=== PATIENT | female | born 1970 | race African-American/Black ===

== ENCOUNTER 2016-03-30 20:14 | Emergency (ER) | payer OTHER ==
[~2016-03-30] VITALS: Ht 185.4 cm; Wt 113.6 kg
[~2016-03-30 20:14] MED LIST: ACET-703 PO; CIPR-9 PO; IBUP800T23 PO; PRED5TAB PO
[2016-03-30 20:16] VITALS: BP 137/80; PULSE 79; RESP 15; TEMP 98.8; O2SAT 96
[2016-03-31 01:11] LABS: BLOOD, URINE SMALL (NEG); GLUCOSE,URINE NEG (NEG); KETONE, URINE NEG (NEG); NITRITE,URINE NEG (NEG); PH, URINE 5.5 (5.0-8.5); RENAL EPITHELIAL CELLS <1 /hpf; SQUAMOUS EPITHELIAL CELL URINE 1 /hpf (0-5); URINE COLOR YELLOW (YELLW/STRAW)
[2016-03-31 01:12] LABS: COMMENT (UR) CULTURE INDICATED; CULTURE IF INDICATED CULTURE INDICATED
[2016-03-31 04:00] VITALS: BP 127/78; PULSE 74; RESP 18; O2SAT 99
[2016-03-31] MEDS ORDERED: ONDANSETRON ODT 4 MG TAB PO ONE (04:00)
[2016-03-31] MEDS ORDERED: NITROFURANTOIN MONOHYD MACROCR 100 MG CAP PO ONE (04:00)
[2016-03-31] MEDS ORDERED: MORPHINE SULFATE 8 MG/ML INJ IM ONE (04:00)
[2016-03-31] MEDS ORDERED: PYRI200T4 PO (04:08)
[2016-03-31] MEDS ORDERED: MACR100C2 PO (04:08)
--- NOTE | 2016-03-31 04:14 | PD ---
HPI Chief Complaint: Complaint Time Seen by Provider: 04:08 Travel History International Travel<30 days: No Contact w/Intl Traveler<30days: No Traveled to known affect area: No History of Present Illness HPI 46-year-old black female presents to emergency department accompanied by her mother for evaluation of increasing urinary frequency, dysuria and urgency. She states that she has had similar symptoms in the past with urinary tract infections. She states that she has a mobility issue and holds her urine. She states that she seen through the clinic. She denies any fever or chills. No nausea vomiting. No abdominal pain. She does have a colostomy and has been stooling normally. No back pain. PFSH Past Medical History Narrative Medical Arthritis, chronic pain, diverticulitis with peritonitis Anemia: Yes Arthritis: Yes Autoimmune Disease: No Blood Disorders: No Anxiety: No Depression: No Heart Rhythm Problems: No Cancer: No Cardiovascular Problems: No High Cholesterol: No Chemotherapy: No Chest Pain: No Congestive Heart Failure: No Diabetes: No Diminished Hearing: No Endocrine: No Glaucoma: No Genitourinary: No Hepatitis: No Hiatal Hernia: No Hypertension: No Immune Disorder: No Kidney Stones: No Musculoskeletal: Yes (RIGHT KNEE OSTEOARTHRITIS) Neurologic: No Psychiatric: No Reproductive: No Respiratory: No Myocardial Infarction: No Radiation Therapy: No Renal Failure: No Sickle Cell Disease: No Thyroid Disease: No Tetanus Vaccination: < 5 Years ?: Not Past Surgical History Narrative Surgical Partial colectomy with diverting colostomy, PEG tube Abdominal Surgery: Yes (colostomy) AICD: No Appendectomy: Yes Body Medical Devices: LEFT PE TUBE Cardiac Surgery: No Ear Surgery: Yes (LEFT EAR INSERTION OF PE TUBE X 2 ) Endocrine Surgery: No Eye Surgery: No Genitourinary Surgery: Yes (intrauterine fibroid removal) Gynecologic Surgery: No Hysterectomy: Yes Joint Replacement: No Oral Surgery: Yes (ADNOIDECTOMY ) Pacemaker: No Thoracic Surgery: No Other Surgery: Yes (APPENDECTOMY) Social History Alcohol Use: No Tobacco Use: No Substance Use: No Allergies-Medications (Allergen,Severity, Reaction): Uncoded Allergies: orange juice (Allergy, Intermediate, Nausea/Vomiting, 11/12/12) Reported Meds & Prescriptions Reported Meds & Active Scripts Active Prednisone 5 Mg Tab 5 Mg PO DAILY Cipro (Ciprofloxacin HCl) 500 Mg Tab 500 Mg PO BID Ibuprofen 800 Mg Tab 800 Mg PO Q8H PRN Reported Tylenol Extra Strength (Acetaminophen) 500 Mg Tab 3 Tab PO Q4-6H PRN Review of Systems Except as stated in HPI: all other systems reviewed are Neg Physical Exam Narrative GENERAL: This is a well-nourished, well-developed patient, in no apparent distress. SKIN: No rashes, ecchymoses or lesions. Warm and dry. HEAD: Atraumatic. Normocephalic. EYES: PERRL, EOMI, no discharge or injection. No scleral icterus. EARS: Clear NOSE: Nasal turbinates appear normal. THROAT: Mucosa pink and moist. Airway patent. NECK: Trachea midline. supple, moves head freely. LUNGS: Clear to auscultation. CV: Regular in rhythm. ABDOMEN: Soft nontender. Colostomy in the left lower abdomen. No CVA tenderness. EXT: No clubbing cyanosis. Chronic +1 Edema. Data Data Last Documented VS Vital Signs Date Time Temp Pulse Resp B/P Pulse Ox O2 Delivery O2 Flow Rate FiO2 03/30/16 20:16 98.8 79 15 137/80 96 Room Air Orders Urinalysis - C+S If Indicated (03/30/16 20:22) Urine Culture (03/31/16 00:36) Morphine Inj (Morphine Inj) (03/31/16 04:00) Ondansetron Odt (Zofran Odt) (03/31/16 04:00) Nitrofurantoin Monohyd Macrocr (Macrobid (03/31/16 04:00) Labs Laboratory Tests Test 03/31/16 00:36 Urine Color YELLOW Urine Turbidity HAZY Urine pH 5.5 Urine Specific [place] 1.032 Urine Protein 30 mg/dL Urine Glucose (UA) NEG mg/dL Urine Ketones NEG mg/dL Urine Occult Blood SMALL Urine Nitrite NEG Urine Bilirubin NEG Urine Urobilinogen LESS THAN 2.0 MG/DL Urine Leukocyte Esterase NEG Urine RBC 70 /hpf Urine WBC 9 /hpf Urine Squamous Epithelial 1 /hpf Cells Urine Renal Epithelial Cells <1 /hpf Urine Amorphous Sediment RARE Microscopic Urinalysis Comment CULTURE INDICATED MDM Medical Decision Making Medical Screen Exam Complete: Yes Emergency Medical Condition: Yes Medical Record Reviewed: Yes Interpretation(s) Laboratory Tests Test 03/31/16 00:36 Urine Color YELLOW Urine Turbidity HAZY Urine pH 5.5 Urine Specific [place] 1.032 Urine Protein 30 mg/dL Urine Glucose (UA) NEG mg/dL Urine Ketones NEG mg/dL Urine Occult Blood SMALL Urine Nitrite NEG Urine Bilirubin NEG Urine Urobilinogen LESS THAN 2.0 MG/DL Urine Leukocyte Esterase NEG Urine RBC 70 /hpf Urine WBC 9 /hpf Urine Squamous Epithelial 1 /hpf Cells Urine Renal Epithelial Cells <1 /hpf Urine Amorphous Sediment RARE Microscopic Urinalysis Comment CULTURE INDICATED Differential Diagnosis Differential diagnoses: Pyelonephritis, UTI, vaginitis, intra-abdominal infection Narrative Course Patient states that these are symptoms consistent with prior UTIs. Her urine shows a predominance of red blood cells with a few WBCs and no bacteria seen. With the patient's complaints she'll be treated for UTI. She does not appear to be septic. She is given Macrobid as well as morphine 8 mg IM for her pain. Patient has mobility issues. She is encouraged to force fluids. This is UTI, chronic pain Diagnosis Primary Impression: UTI (urinary tract infection) Qualified Code: N30.01 - Acute cystitis with hematuria Additional Impression: Chronic pain Qualified Code: G89.4 - Chronic pain syndrome Patient Instructions: General Instructions Additional Instructions: Rest. Increase fluids. Macrobid and Pyridium. Follow-up with a primary care doctor in one week. Return to the ER for any problems. Med/Other Pt SpecificInfo: Prescription(s) given Scripts Phenazopyridine (Pyridium)200 Mg Yer930 Mg PO Q8H PRN (DYSURIA) #9 TAB Prov:Kali Jolly MD 03/31/16 Nitrofurantoin Monohydrate Macrocrystals (Macrobid)100 Mg Gol001 Mg PO BID #20 CAP Prov:Kali Jolly MD 03/31/16 Disposition: 01 DISCHARGE HOME Condition: Stable Alberto Brown Mar 31, 2016 04:13
[2016-04-12] MEDS ORDERED: PRED5TAB PO (10:31)
== END 2016-03-31 04:51 | disposition home or self-care (01) ==
LOC: NEPB 20:14
DX: N39.0 Urinary tract infection, site not specified (principal); D64.9 Anemia, unspecified; M19.90 Unspecified osteoarthritis, unspecified site; G89.4 Chronic pain syndrome; Z93.3 Colostomy status
CPT/HCPCS: 81001; 87086; 96372; 99283; J2270

== ENCOUNTER 2016-08-10 09:27 | Inpatient (IN) | payer BC ==
[~2016-08-10] VITALS: Ht 185.4 cm; Wt 138.0 kg
[~2016-08-10 09:27] MED LIST changes: -ACET-703 PO; -CIPR-9 PO; -PRED5TAB PO
--- NOTE | 2016-08-21 08:15 | MH ---
cc: Gennaro RAE M.D. DATE OF ADMISSION: 09/04/2016 PREOPERATIVE DIAGNOSIS Osteoarthritic degeneration both left and right knees, now for bilateral total knee arthroplasties. ADMISSION HISTORY AND PHYSICAL This pleasant 46-year-old female is being admitted today for bilateral total knee arthroplasty due to severe painful osteoarthritic degeneration. PAST MEDICAL HISTORY Other past history: 1. The patient has a history of arthritis. 2. She has a history of having previous surgeries, appendectomy. 3. Hysterectomy. 4. Intestinal surgery. 5. Ear tubes. 6. She has a colostomy. CURRENT MEDICATIONS Include: 1. Ibuprofen. 2. Tylenol. 3. Prednisone. REVIEW OF SYSTEMS Noncontributory. FAMILY HISTORY Noncontributory. SOCIAL HISTORY She does not smoke or drink. ALLERGIES NO KNOWN ALLERGIES. PHYSICAL EXAMINATION GENERAL: We find a 46-year-old female well-developed, well-nourished, oriented x 3, complaining of pain in her knees. She is unable to ambulate without quite a bit of assistance. VITAL SIGNS: Blood pressure 138/80, pulse 88 and regular, respirations 18, temperature 98.1. Pulse oximetry 97% on room air. HEENT: Pupils equal, round, reactive to light and accommodation, extraocular movements intact. Ears, nose and throat clear. NECK: Supple. LUNGS: Clear. HEART: Regular rate. ABDOMEN: Soft. She has a colostomy. EXTREMITIES: Reveal severe arthritic degeneration of both knees with limited motion. She is neurovascularly intact to her toes. IMPRESSION Severe painful osteoarthritic degeneration both knees. PLAN Admission for bilateral total knee arthroplasty today. The patient understands the procedure well and understands to use Hibiclens scrub and Bactroban ointment and plans on going to [facility] after surgery. MD ANDREA Smith/PATEL /6:04 PM /8:16 AM
[2016-09-01] MEDS ORDERED: NORC5TAB PO (10:39)
[2016-09-01] MEDS ORDERED: NON-500T10 PO (10:40)
[2016-09-04] MEDS ORDERED: SODIUM CHLORID 0.9% 500 ML IV PRN (06:45)
[2016-09-04] MEDS ORDERED: LACTATED RINGER'S 1000 ML IV PRN (06:45)
[2016-09-04] MEDS ORDERED: POVIDONE IODINE 5% (ANTISEPSIS KIT) 4 APPLICATIONS EACH NARE PRN (06:45)
[2016-09-04] MEDS ORDERED: INSULIN HUMAN REGULAR 1,000 UNITS/10 ML VIAL SQ PRN (06:45)
[2016-09-04] MEDS ORDERED: METOPROLOL TARTRATE 25 MG TAB PO PRN (06:45)
[2016-09-04] MEDS ORDERED: CHLORHEXIDINE GLUCONATE 2 % 1 PACK (2 CLOTHS) TOPICAL PRN (06:45)
[2016-09-04 07:00] VITALS: BP 161/100; PULSE 84; RESP 18; TEMP 98.6; O2SAT 98
[2016-09-04] MEDS ORDERED: ceFAZolin 2 GM PREMIX 50 ML IV SCH (07:00)
[2016-09-04] MEDS ORDERED: VANCOMYCIN 1000 MG/NS 250 ML (for <70 kg) IV SCH ×2 (07:00)
[2016-09-04] MEDS ORDERED: TRANEXAMIC ACID INJ 1,360 MG in SODIUM CHLORIDE 0.9% INJ 100 ML IV SCH ×2 (09:00→12:00)
[2016-09-04] MEDS ORDERED: BUPIVACAINE LIPOSO PF 1.3% INJ 20 ML in SODIUM CHLORIDE 0.9% INJ 100 ML P-ARTICULR SCH (09:00)
[2016-09-04] MEDS ORDERED: TRANEXAMIC ACID INJ 0 MG in SODIUM CHLORIDE 0.9% INJ 100 ML IV SCH (10:30)
[2016-09-04] MEDS ORDERED: Post-op Orders (for Pharmacy) MISC XX ONE (10:30)
[2016-09-04] MEDS ORDERED: ONDANSETRON HCL 4 MG/2 ML VIAL IVP PRN (10:30)
[2016-09-04] MEDS ORDERED: ACETAMINOPHEN 325 MG TAB PO PRN (10:30)
[2016-09-04] MEDS ORDERED: SODIUM CHLORIDE 0.9% FLUSH 5 ML FLUSH IVF PRN (10:30)
[2016-09-04] MEDS ORDERED: ACETAMINOPHEN/HYDROcodone 325 MG/10 MG TAB PO PRN ×2 (10:30)
[2016-09-04] MEDS ORDERED: diphenhydrAMINE HCL 50 MG/ML VIAL IV PRN (10:30)
[2016-09-04] MEDS ORDERED: NALOXONE HCL 0.4 MG/ML AMP IV PRN (10:30)
[2016-09-04] MEDS ORDERED: ceFAZolin INJ 1,000 MG VIAL TOPICAL ONE (11:03)
[2016-09-04] MEDS ORDERED: NEOSTIGMINE 3 MG/3 ML SYR IV ONE (14:22)
[2016-09-04] MEDS ORDERED: PROPOFOL 200 MG/20 ML AMP IV ONE (14:22)
[2016-09-04] MEDS ORDERED: LACTATED RINGER'S 1000 ML INJ 2,000 ML IV ONE (14:23)
[2016-09-04] MEDS ORDERED: ONDANSETRON HCL 4 MG/2 ML VIAL IV PUSH ONE (14:23)
[2016-09-04] MEDS ORDERED: MIDAZOLAM HCL 2 MG/2 ML VIAL ONE (15:17)
[2016-09-04] MEDS ORDERED: MORPHINE SULFATE 4 MG/ML INJ ONE (15:17)
[2016-09-04] MEDS ORDERED: fentaNYL CITRATE 250 MCG/5 ML AMP ONE (15:17)
--- NOTE | 2016-09-04 15:39 | HHI.PR ---
Immediate Post Op Note Procedure Date: Sep 04, 2016 Pre Op Diagnosis: (1) Osteoarthritis (2) Osteoarthritis of both knees Post Op Diagnosis: (1) Osteoarthritis of both knees Surgeon: Dr. Gennaro Byrd Manager Pediatric(s): Lacy MCCANN Procedure: Bilateral Total Knees Arthroplasty Complications: none Specimen(s) removed: none Estimated blood loss: 300cc Anesthesia: General Drains: None IVF (3600cc) Tourniquet time (min at mmHg) Left Knee 66 mins/300mmHg Right Knee 66 mins/300mmHg Patient to: PACU Patient Condition: Good Implant/Devices: SEE IMPLANT LOG (if applicable) Date/Time of Procedure: SEE SURGICAL CARE RECORD Lacy Yu Sep 04, 2016 15:39
[2016-09-04] MEDS: LACTATED RINGER'S 1000 ML INJ 1,000 ML IV SCH ×2 (16:00→23:59)
[2016-09-04] MEDS: MORPHINE SULFATE 30 MG/30 ML PCA IV SCH (16:05)
--- NOTE | 2016-09-04 16:41 | RADRPT ---
EXAM DATE/TIME: 09/04/2016 15:21 [facility] COMPARISON: KNEE LEFT LTD (1 OR 2VWS), November 22, 2015, 17:57. INDICATIONS : Post op left knee arthroplasty. MEDICAL HISTORY : Arthritis. SURGICAL HISTORY : None. ENCOUNTER: Initial ACUITY: 1 day PAIN SCORE: Non-responsive. LOCATION: Left knee FINDINGS: Postsurgical features of left knee arthroplasty. Arthroplasty components are in anatomic alignment. N o significant acute bony fracture. Immediate postsurgical soft tissue features. CONCLUSION: 1. Status post left knee arthroplasty in anatomic alignment without significant acute bony fracture. Marbin Wadlron MD on September 04, 2016 at 16:38 Board Certified Radiologist. This report was verified electronically.
--- NOTE | 2016-09-04 16:42 | RADRPT ---
EXAM DATE/TIME: 09/04/2016 15:29 [facility] COMPARISON: KNEE RIGHT LTD (1 OR 2 VWS), November 22, 2015, 17:56. INDICATIONS : Post op right knee arthroplasty. MEDICAL HISTORY : Arthritis. SURGICAL HISTORY : None. ENCOUNTER: Initial ACUITY: 1 day PAIN SCORE: Non-responsive. LOCATION: Right knee FINDINGS: Postsurgical features of right knee arthroplasty. Arthroplasty components are in anatomic alignment. No significant acute bony fracture. The patella appears more cephalad in position in comparison to co mparison. Immediate postsurgical soft tissue features. CONCLUSION: 1. Status post right knee arthroplasty in anatomic alignment without significant acute bony fracture . Marbin Waldron MD on September 04, 2016 at 16:39 Board Certified Radiologist. This report was verified electronically.
--- NOTE | 2016-09-04 16:51 | PD.CONS ---
[facility] Request[facility] By Dwain Byrd MD Reason for Consult Medical Management Primary Care Physician No Primary Care Physician Diagnoses: History of Present Illness this is a pleasant 46 y/o Female with severe degenerative OA of bilateral knees brought in by his Primary Orthopedic Surgeon Doctor Dwain Byrd, now in status post Bilateral knee arthroplasty. secondary to Severe painful degenerative OA of both knees. no past medical history Review of Systems Musculoskeletal: COMPLAINS OF: Joint pain Except as stated in HPI: all other systems reviewed are Neg Past Family Social History Allergies: Uncoded Allergies: orange juice (Allergy, Intermediate, Nausea/Vomiting, 11/12/12) NO KNOW ALLERGIES (Allergy, Unknown, 09/04/16) Past Medical History OA Past Surgical History Appendectomy Intestinal Surgery Colostomy RENITA Reported Medications Reported Meds & Active Scripts Active Ibuprofen 800 Mg Tab 800 Mg PO Q8H PRN Reported Non-Aspirin Extra Strength (Acetaminophen) 500 Mg Tab 500 Tab PO Q4-6H PRN [place] (Hydrocodone-Acetaminophen) 5-325 mg Tab 1 Tab PO Q4H PRN Active Ordered Medications Current Medications Medications (Trade) Dose Ordered Sig/[place]ito Route Start Time Stop Time Status Last Admin Lactated Ringer's 1,000 ml @ 30 mls/hr Q24H PRN IV 09/04/16 06:45 09/07/16 06:44 09/04/16 07:15 Sodium Chloride 500 ml @ 30 mls/hr [id number] PRN IV 09/04/16 06:45 09/07/16 06:44 (Lr 1000 ml Inj) 1,000 ml @ 80 mls/hr [id number] IV 09/04/16 10:24 09/04/16 16:00 (NS Flush) 2 ml UNSCH PRN IVF 09/04/16 10:30 IV Flush 2 ml 2 ml BID IVF 09/04/16 21:00 (Ancef Inj/NS Inj) 100 ml @ 200 mls/hr Q6H IV 09/04/16 17:00 09/05/16 05:29 (Lovenox Inj) 30 mg Q12H SQ 09/05/16 14:00 ([place] 10-325 Mg) 1 tab Q4H PRN PO 09/04/16 10:30 ([place] 10-325 Mg) 2 tab Q6H PRN PO 09/04/16 10:30 (Tylenol) 650 mg Q6H PRN PO 09/04/16 10:30 (Theragran M Tab) 1 tab BID PO 09/05/16 21:00 11/04/16 20:59 (Zofran Inj) 4 mg Q6H PRN IVP 09/04/16 10:30 (Colace) 100 mg BID PO 09/05/16 21:00 (Restoril) 15 mg HS PRN PO 09/04/16 21:00 (Narcan Inj) 0.4 mg UNSCH PRN IV 09/04/16 10:30 (Benadryl Inj) 25 mg Q6H PRN IV 09/04/16 10:30 (Morphine 1 Mg/ ml MARKETING TECHNOLOGY COORDINATOR) 30 mg UNSCH IV 09/04/16 10:30 09/04/16 16:05 MARKETING TECHNOLOGY COORDINATOR Dosage Infused (Pha) 1 Q8HR .XX 09/04/16 14:00 Family History Mother with Hypertension Father with DM II Social History lives with her Parents and denies any toxic habits. Physical Exam Vital Signs Vital Signs Date Time Temp Pulse Resp B/P Pulse Ox O2 Delivery O2 Flow Rate FiO2 09/04/16 16:05 16 09/04/16 15:13 98.4 86 22 120/72 98 Nasal Cannula 2 09/04/16 07:00 98.6 84 18 161/100 98 Physical Exam GENERAL: Obese patient in no acute distress. SKIN: No rashes, ecchymoses or lesions. Cool and dry. HEAD: Atraumatic. Normocephalic. No temporal or scalp tenderness. EYES: Pupils equal round and reactive. Extraocular motions intact. No scleral icterus. No injection or drainage. ENT: Nose without bleeding, purulent drainage or septal hematoma. Throat without erythema, tonsillar hypertrophy or exudate. Uvula midline. Airway patent. NECK: Trachea midline. No JVD or lymphadenopathy. Supple, nontender, no meningeal signs. CARDIOVASCULAR: Regular rate and rhythm without murmurs, gallops, or rubs. RESPIRATORY: Clear to auscultation. Breath sounds equal bilaterally. No wheezes , rales, or rhonchi. GASTROINTESTINAL: Abdomen soft, non-tender, nondistended. No hepato-splenomegaly , or palpable masses. No guarding. MUSCULOSKELETAL: Extremities without clubbing, cyanosis, bilateral legs with Orthotics in place. NEUROLOGICAL: Awake and alert. Cranial nerves II through XII intact. No focal deficits. Laboratory Laboratory Tests Test 09/04/16 07:15 Blood Type O POSITIVE Antibody Screen NEGATIVE Imaging No new Imaging studies. Assessment and Plan Assessment and Plan 1. Severe painful osteoarthritic degeneration both knees status post bilateral Total knee arthroplasty he will go to [facility] for Rehabilitation continue Pain medicine, PT evaluation. 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 Code Status Full Code. Discussed Condition With Patient and nurse, all questions answered to the best of my abilities. Lucho Morfin MD Sep 04, 2016 16:51
[2016-09-04 19:00] VITALS: BP 150/90; PULSE 98; RESP 16; TEMP 98; O2SAT 98
[2016-09-04] MEDS ORDERED: DO NOT ADM ANY ANTICOAGULANT DRUGS PRN (19:15)
[2016-09-04 19:50] VITALS: O2SAT 95
[2016-09-04] MEDS: SODIUM CHLORIDE 0.9% FLUSH 5 ML FLUSH IVF SCH (20:51)
[2016-09-04] MEDS: PCA - TOTAL MG MORPHINE DELIVERED PER SHIFT SCH (20:52)
[2016-09-04] MEDS ORDERED: TEMAZEPAM 15 MG CAP PO PRN (21:00)
[2016-09-05] VITALS (9 sets, daily range): BP systolic 130–177; BP diastolic 64–91; PULSE 100–116; RESP 16–18; TEMP 100–103.2; O2SAT 93–99
[2016-09-05] MEDS: PCA - TOTAL MG MORPHINE DELIVERED PER SHIFT SCH ×2 (05:30→14:00)
[2016-09-05 06:36] LABS: REVIEW FLAG FINAL
[2016-09-05 07:02] LABS: ALT (GPT) 14 U/L (10-53); ANION GAP 9 MEQ/L (5-15); AST (GOT) 14 U/L (15-37); BICARBONATE 28.5 MEQ/L (21.0-32.0); BLOOD UREA NITROGEN 9 MG/DL (7-18); CHLORIDE 100 MEQ/L (98-107); GLOMERULAR FILTRATION RATE 152 ML/MIN (>89); POTASSIUM 3.3 MEQ/L (3.5-5.1); SODIUM (NA) 137 MEQ/L (136-145)
[2016-09-05 07:27] LABS: ALKALINE PHOSPHATASE 84 U/L (45-117); HDL CHOLESTEROL 41.8 MG/DL (40.0-60.0); LDL CHOLESTEROL 44 MG/DL (0-99); TOTAL BILIRUBIN ADULT 0.5 MG/DL (0.2-1.0)
[2016-09-05] MEDS: SODIUM CHLORIDE 0.9% FLUSH 5 ML FLUSH IVF SCH ×2 (07:47→20:03)
--- NOTE | 2016-09-05 08:37 | HHI.PR ---
Subjective Remarks This is a pleasant 46 y/o Female with severe degenerative OA of bilateral knees brought in by his Primary Orthopedic Surgeon Doctor Dwain Byrd, now in status post Bilateral knee arthroplasty. secondary to Severe painful degenerative OA of both knees. no past medical history 09/05: Seen in her bedroom in the presence of nurse Miss Stephens, has Fever with Temperature of 101.4, CXR negative for pathology, Urinalysis will follow result, even no respiratory issues started on Bronchodilator, Mucolytic and encourage incentive spirometry and early ambulation no SOB, she states she has some flushing related to hormonal changes. no nausea , vomit or diarrhea. Objective Vital Signs Date Time Temp Pulse Resp B/P Pulse Ox O2 Delivery O2 Flow Rate FiO2 09/05/16 07:33 101.4 103 18 136/64 95 09/05/16 05:30 17 09/05/16 04:00 101.2 110 17 134/68 95 09/05/16 00:00 100.0 114 16 158/91 97 09/04/16 21:01 Nasal Cannula 09/04/16 20:52 16 09/04/16 19:50 95 21 09/04/16 19:07 Nasal Cannula 2.00 09/04/16 19:00 98.0 98 16 150/90 98 09/04/16 19:00 97.9 96 19 125/69 98 Room Air 09/04/16 18:15 96 19 125/69 98 Room Air 09/04/16 17:15 95 19 120/67 96 Room Air 09/04/16 16:15 93 19 127/41 98 Room Air 09/04/16 16:05 16 09/04/16 16:00 91 19 135/78 98 Room Air 09/04/16 15:45 90 20 129/76 95 Room Air 09/04/16 15:30 86 20 123/75 100 Nasal Cannula 2 09/04/16 15:13 98.4 86 22 120/72 98 Nasal Cannula 2 I/O 09/04/16 09/04/16 09/04/16 09/05/16 09/05/16 09/05/16 07:00 15:00 23:00 07:00 15:00 23:00 Intake Total 4916 ml 1160 ml Output Total 1950 ml Balance 2966 ml 1160 ml Intake Oral 480 ml 408 ml IV Total 836 ml 752 ml Other 3600 ml Output Urine Total 1650 ml Estimated Blood Loss 300 ml # Voids 2 # Bowel Movements 0 0 Result Diagram: 09/05/16 0448 09/05/16 0448 Imaging Last Impressions Knee X-Ray 09/04/16 1024 Signed Impressions: Service Date/Time: Sunday, September 04, 2016 15:21 - CONCLUSION: 1. Status post left knee arthroplasty in anatomic alignment without significant acute bony fracture. Marbin Waldron MD Procedures Post bilateral Total knee arthroplasty 09/04/16 Other Results Laboratory Tests Test 09/04/16 09/05/16 07:15 04:48 Blood Type O POSITIVE Antibody Screen NEGATIVE Hemoglobin 9.0 GM/DL Hematocrit 27.0 % Sodium Level 137 MEQ/L Potassium Level 3.3 MEQ/L Chloride Level 100 MEQ/L Carbon Dioxide Level 28.5 MEQ/L Anion Gap 9 MEQ/L Blood Urea Nitrogen 9 MG/DL Creatinine 0.52 MG/DL Estimat Glomerular Filtration 152 ML/MIN Rate Random Glucose 114 MG/DL Calcium Level 8.5 MG/DL Total Bilirubin 0.5 MG/DL Aspartate Amino Transf 14 U/L (AST/SGOT) Alanine Aminotransferase 14 U/L (ALT/SGPT) Alkaline Phosphatase 84 U/L Total Protein 7.0 GM/DL Albumin 2.5 GM/DL Triglycerides Level 74 MG/DL Cholesterol Level 101 MG/DL LDL Cholesterol 44 MG/DL HDL Cholesterol 41.8 MG/DL Cholesterol/HDL Ratio 2.41 RATIO Vitamin B12 Level 440 PG/ML Folate 8.8 NG/ML Thyroid Stimulating Hormone 0.350 uIU/ML 3rd Gen Objective Remarks GENERAL: Obese patient in no acute distress. SKIN: No rashes, ecchymoses or lesions. Cool and dry. HEAD: Atraumatic. Normocephalic. No temporal or scalp tenderness. EYES: Pupils equal round and reactive. ENT: Nose without bleeding. moist mucous membranes. NECK: Trachea midline. No JVD or lymphadenopathy. Supple, nontender, no meningeal signs. CARDIOVASCULAR: Regular rate and rhythm without murmurs, gallops, or rubs. RESPIRATORY: Clear to auscultation. Breath sounds equal bilaterally. No wheezes , rales, or rhonchi. GASTROINTESTINAL: Abdomen soft, non-tender, nondistended. MUSCULOSKELETAL: Extremities without clubbing, cyanosis, bilateral legs with Orthotics in place. NEUROLOGICAL: Awake and alert. Cranial nerves II through XII intact. No focal deficits. Medications and IVs Current Medications Medications (Trade) Dose Ordered Sig/[place] Route Start Time Stop Time Status Last Admin (Lr 1000 ml Inj) 1,000 ml @ 80 mls/hr [id number] IV 09/04/16 10:24 09/04/16 23:59 (NS Flush) 2 ml UNSCH PRN IVF 09/04/16 10:30 (NS Flush) 2 ml BID IVF 09/04/16 21:00 (Lovenox Inj) 30 mg Q12H SQ 09/05/16 14:00 ([place] 10-325 Mg) 1 tab Q4H PRN PO 09/04/16 10:30 ([place] 10-325 Mg) 2 tab Q6H PRN PO 09/04/16 10:30 (Tylenol) 650 mg Q6H PRN PO 09/04/16 10:30 09/05/16 07:43 (Theragran M Tab) 1 tab BID PO 09/05/16 21:00 11/04/16 20:59 (Zofran Inj) 4 mg Q6H PRN IVP 09/04/16 10:30 (Colace) 100 mg BID PO 09/05/16 21:00 (Restoril) 15 mg HS PRN PO 09/04/16 21:00 (Narcan Inj) 0.4 mg UNSCH PRN IV 09/04/16 10:30 (Benadryl Inj) 25 mg Q6H PRN IV 09/04/16 10:30 (Morphine 1 Mg/ ml FRONT END LOADER OPERATOR) 30 mg UNSCH IV 09/04/16 10:30 09/04/16 16:05 FRONT END LOADER OPERATOR Dosage Infused (Pha) 1 Q8HR .XX 09/04/16 14:00 09/05/16 05:30 Miscellaneous Information ALL NURSING DEPARTME... UNSCH PRN .XX 09/04/16 19:15 09/05/16 19:14 A/P Assessment and Plan 1. Severe painful osteoarthritic degeneration both knees status post bilateral Total knee arthroplasty he will go to [facility] for Rehabilitation continue Pain medicine, PT evaluation. binder caser, encourage ambulation. 2. Fever asked for CXR negative for pathology, Urinalysis awaiting for result CBC for tomorrow in am, encourage ambulation, Bronchodilator, Mucolytic Fever is expected the first day post surgery but will follow closely she is stable and no signs of infection so far. 3. Hypokalemia replaced and following along with magnesium 4. Normocytic Normochromic Anemia Iron deficiency anemia will give Iron IV for three days. and follow. DVT prophylaxis with Lovenox Code Status Full Code. Discussed Condition With with Patient and nurse Miss Stephens in the room, all questions answered to the best of my abilities. Lucho Morfin MD Sep 05, 2016 08:37
[2016-09-05] MEDS ORDERED: POTASSIUM CHLORIDE 20 MEQ CONTROLLED RELEASE TAB PO ONE ×2 (09:00→12:00)
[2016-09-05] MEDS: MORPHINE SULFATE 30 MG/30 ML PCA IV SCH (09:22)
--- NOTE | 2016-09-05 09:36 | RADRPT ---
EXAM DATE/TIME: 09/05/2016 08:56 [facility] COMPARISON: KNEE RIGHT LTD (1 OR 2 VWS), September 04, 2016, 15:29. INDICATIONS : Pneumonia. MEDICAL HISTORY : Arthritis. SURGICAL HISTORY : Bilateral knee replacement 09/04/16. ENCOUNTER: Initial ACUITY: 2 days PAIN SCORE: 0/10 LOCATION: Bilateral chest FINDINGS: A single view of the chest demonstrates the lungs to be symmetrically aerated without evidence of mas s, infiltrate or effusion. The cardiomediastinal contours are unremarkable. Osseous structures are intact. CONCLUSION: 1. No acute cardiopulmonary findings. Kali Nava MD on September 05, 2016 at 9:32 Board Certified Radiologist. This report was verified electronically.
--- NOTE | 2016-09-05 09:48 | MP ---
cc: Gennaro BYRD M.D. DATE OF SURGERY 09/04/2016 PREOPERATIVE DIAGNOSIS Osteoarthritic degeneration both left and right knees. POSTOPERATIVE DIAGNOSIS Osteoarthritic degeneration both left and right knees. SURGERY PERFORMED Total knee arthroplasties both left and right knees. SURGEON Dr. Byrd EKG TECHNICIAN RAMY Constantino ANESTHESIA General intubation and block. COMPONENTS USED Consensus Knee System. Left knee - Size 4 femur, 4 tibia. Size 3 patella. Right knee - Size 4 femur, 4 tibia. Size 2 patella. Inserts - Size 12 on the left and size 10 on the right. PROCEDURE After successful induction of anesthesia, the patient is placed on the operating room table in the supine position. The knee is prepped and draped in the usual manner. A tourniquet is inflated at the upper thigh and set to 300 mmHg pressure after exsanguination of the lower extremity. A longitudinal incision is made extending from 3 inches proximal to the superior pole of the patella, across the patella in longitudinal fashion, and down past the insertion of the tibial tubercle into the proximal tibia. The incision is carried down through subcutaneous tissue along the medial aspect of the patella and retinaculum, down through the capsule to expose the knee joint. The patella and patellar tendon are freed up enough to allow the patella to be inverted and retracted off the lateral side of the knee joint. The knee joint is left exposed. Small osteophytes are removed. All soft tissue is removed to allow proper position of the femoral and tibial cutting jig guide. The first femoral jig is then inserted along the distal end of the femur after first measuring to decide whether this is a small, medium, or large component. The notch is then drilled and the tibial cutting guide inserted into the femoral cutting guide, along with the ankle brace to allow for proper measurement of the tibial cutting surface that needed to be resected. Pins are inserted into the tibial cutting jig and femoral cutting jig to hold them in place. An oscillating saw is then used to resect the surface of the tibia. The surface of the tibia is then completely removed using sharp and blunt dissection. The anterior and posterior cuts of the femur are then made as well using an oscillating saw through the cutting guide. All guides are then removed and the varus/valgus angulation cutting guide applied to the femur for proper measurement of the proper amount of valgus. The anterior cutting guide for the femur is then inserted at the anterior femoral cuts made. Next, the first block trial is inserted into the femur to allow for proper condyle drill holes to be made which are then made followed by removal of the bone between the condyles using an oscillating saw as well as the bone removed at the most posterior surface of the condyle. After this, this guide is removed and the chamfer cuts made using the chamfer cutting guide from both anterior and posterior. Next, the femoral trial is then inserted, the tibial surface reflected anterior to expose the tibial surface and a tibial stem guide is inserted after first measuring for a standard, standard plus, large, or large plus surface to be used. After the stem is impacted the trial tibial surface is applied followed by the trial meniscal components. After full range of motion is found with the appropriate length meniscal components varying the patella is prepared by resecting the posterior aspect of the patella using an oscillating saw, inserting a trial. The trial is then removed and the cruciate cutting guide applied using the bur to cut the cruciate cuts. After cruciate cuts are made all trials are removed. The wound is irrigated copiously with antibiotic solution and Water Pik and the actual components inserted into place using Consensus Knee System, the left knee - size 4 femur, 4 tibia, size 3 patella. Right knee - size 4 femur, 4 tibia, size 2 patella. Inserts were a size 12 on the left and size 10 on the right with the B spoke protocol. The left knee was done first, followed by exact same procedure on the right. The total tourniquet time on the left knee was 66 minutes and 5 cc or [place] was used for extra bleeding control on the left knee, not on the right. The deep fascia on both knees was approximated using a running 2-0 Quill sutures, the subcutaneous tissue approximated using interrupted and running 2-0 and 4-0 Monocryl sutures. Sterile strips, knee immobilizer. No drain utilized. Extra time was needed especially on the right knee for exposure and being able to remove osteophytes to allow the knee to bend to 90 degrees to allow us to use the cutting jigs. RAMY Constantino, was present during the entire procedure to include patient positioning and the procedure. The medical necessity of nurse practitioner first grade teacher was indicated in this case due to the surgical complexity of the case itself. During the surgical case the salesperson surgical appliances was working the back table while my salesperson surgical appliances RAMY was directly assisting me. 120 cc of Exparel was used, divided in half in the left and half in the right knee for extra pain control. ESTIMATED BLOOD LOSS Throughout the entire procedure was 300 cc. COUNTS Sponge and suture counts correct. The patient tolerated the procedure well and left the operating room in satisfactory condition. J. MD ANDREA Hernandez/MAGDA /2:46 PM /9:37 AM
--- NOTE | 2016-09-05 10:56 | PD.ORT.PN ---
Subjective Subjective Remarks pt having some pain in knees today. Left more than right. Objective Vitals Vital Signs Date Time Temp Pulse Resp B/P Pulse Ox O2 Delivery O2 Flow Rate FiO2 09/05/16 09:22 18 09/05/16 07:33 101.4 103 18 136/64 95 09/05/16 05:30 17 09/05/16 04:00 101.2 110 17 134/68 95 09/05/16 00:00 100.0 114 16 158/91 97 09/04/16 21:01 Nasal Cannula 09/04/16 20:52 16 09/04/16 19:50 95 21 09/04/16 19:07 Nasal Cannula 2.00 09/04/16 19:00 98.0 98 16 150/90 98 09/04/16 19:00 97.9 96 19 125/69 98 Room Air 09/04/16 18:15 96 19 125/69 98 Room Air 09/04/16 17:15 95 19 120/67 96 Room Air 09/04/16 16:15 93 19 127/41 98 Room Air 09/04/16 16:05 16 09/04/16 16:00 91 19 135/78 98 Room Air 09/04/16 15:45 90 20 129/76 95 Room Air 09/04/16 15:30 86 20 123/75 100 Nasal Cannula 2 09/04/16 15:13 98.4 86 22 120/72 98 Nasal Cannula 2 I/O 09/04/16 09/04/16 09/04/16 09/05/16 09/05/16 09/05/16 07:00 15:00 23:00 07:00 15:00 23:00 Intake Total 4916 ml 1160 ml Output Total 1950 ml Balance 2966 ml 1160 ml Intake Oral 480 ml 408 ml IV Total 836 ml 752 ml Other 3600 ml Output Urine Total 1650 ml Estimated Blood Loss 300 ml # Voids 2 # Bowel Movements 0 0 Result Diagram: 09/05/16 0448 09/05/16 0448 Imaging Last 24 hours Impressions Chest X-Ray 09/05/16 0000 Signed Impressions: Service Date/Time: Monday, September 05, 2016 08:56 - CONCLUSION: 1. No acute cardiopulmonary findings. Kali Nava MD Objective Remarks In bed. Dressings dry and intact. No calf tenderness. 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 Encourage OOB with PT. Medical for fever. Plan for [facility] after stay in [facility] [place]. Gennaro Byrd MD Sep 05, 2016 10:56
[2016-09-05] MEDS: LACTATED RINGER'S 1000 ML INJ 1,000 ML IV SCH ×2 (11:24→20:03)
[2016-09-05] MEDS: guaiFENesin E.R. 600 MG TAB PO SCH ×2 (12:02→20:03)
[2016-09-05 12:36] LABS: BACTERIA, URINE RARE /hpf; BLOOD, URINE MOD (NEG); COMMENT (UR) CULT NOT INDICATED; CULTURE IF INDICATED CULT NOT INDICATED; GLUCOSE,URINE NEG (NEG); KETONE, URINE NEG (NEG); MUCUS URINE MOD /lpf (OCC); NITRITE,URINE NEG (NEG); PH, URINE 5.5 (5.0-8.5); SQUAMOUS EPITHELIAL CELL URINE 1 /hpf (0-5); URINE COLOR YELLOW (YELLW/STRAW)
[2016-09-05] MEDS: ENOXAPARIN SODIUM 30 MG/0.3 ML SYRINGE SQ SCH (13:23)
[2016-09-05] MEDS: RESP: ALBUTEROL 2.5 MG/IPRATROPIUM 0.5 MG NEB (SCH) NEB ×2 (16:16→21:27)
[2016-09-05 18:22] LABS: AUTOMATED NEUTROPHIL # 14.2 TH/MM3 (1.8-7.7); BASOPHIL % 0.1 % (0.0-2.0); HEMATOCRIT 25.6 % (35.0-46.0); HEMO FLAGS DIFF FINAL; LYMPH % 4.8 % (9.0-44.0); LYMPHOCYTE # 0.8 TH/MM3 (1.0-4.8); MEAN CELL VOLUME 89.1 FL (80.0-100.0); MEAN CORPUSCULAR HEMOGLOBIN 28.5 PG (27.0-34.0); MEAN CORPUSCULAR HGB CONC 31.9 % (32.0-36.0); MONO % 6.4 % (0.0-8.0); NEUT % 88.7 % (16.0-70.0); PLATELET COUNT 212 TH/MM3 (150-450); RED BLOOD COUNT 2.87 MIL/MM3 (4.00-5.30); RED CELL DISTRIBUTION WIDTH 14.2 % (11.6-17.2)
[2016-09-05 18:43] LABS: HEMOGLOBIN A1b 0.8 %; HEMOGLOBIN Ao 85.9 %; HEMOGLOBIN LA1C 1.7 %; HEMOGLOBIN P3 3.5 %
[2016-09-05] MEDS: DOCUSATE SODIUM 100 MG CAP PO SCH (20:03)
[2016-09-05] MEDS: MULTIVITAMINS/MINERALS THERAPEUTIC TAB PO SCH (20:03)
[2016-09-05] MEDS: ACETAMINOPHEN 325 MG TAB PO PRN (21:50)
[2016-09-06] VITALS (8 sets, daily range): BP systolic 106–165; BP diastolic 59–77; PULSE 109–125; RESP 17–18; TEMP 99.6–102.3; O2SAT 93–97
[2016-09-06] MEDS: ENOXAPARIN SODIUM 30 MG/0.3 ML SYRINGE SQ SCH ×2 (01:19→13:25)
[2016-09-06] MEDS: ACETAMINOPHEN 325 MG TAB PO PRN ×3 (01:25→23:37)
[2016-09-06] MEDS: RESP: ALBUTEROL 2.5 MG/IPRATROPIUM 0.5 MG NEB (SCH) NEB ×4 (03:43→20:20)
[2016-09-06] MEDS ORDERED: MAGNESIUM HYDROXIDE SUSP 30 ML CUP PO PRN (04:00)
[2016-09-06] MEDS ORDERED: SENNOSIDES 8.6 MG TAB PO PRN (04:00)
--- NOTE | 2016-09-06 07:52 | PD.ORT.PN ---
Subjective Subjective Remarks pt having less pain today. Wants to do rehab. Objective Vitals Vital Signs Date Time Temp Pulse Resp B/P Pulse Ox O2 Delivery O2 Flow Rate FiO2 09/06/16 07:20 100.4 118 18 158/77 97 09/06/16 04:10 100.6 119 18 165/68 97 09/06/16 03:46 93 09/06/16 01:10 101.3 116 18 146/64 94 09/05/16 20:15 101.4 116 18 161/76 96 09/05/16 18:53 Room Air 09/05/16 17:00 100.9 09/05/16 16:16 96 21 09/05/16 16:00 103.2 110 18 177/77 93 09/05/16 14:00 18 09/05/16 12:00 100.2 100 18 130/72 95 09/05/16 11:00 99 09/05/16 09:27 18 09/05/16 09:22 18 I/O 09/05/16 09/05/16 09/05/16 09/06/16 09/06/16 09/06/16 07:00 15:00 23:00 07:00 15:00 23:00 Intake Total 1160 ml 720 ml 1428 ml 1311 ml Output Total 700 ml 500 ml 450 ml Balance 1160 ml 20 ml 928 ml 861 ml Intake Oral 408 ml 720 ml 600 ml 720 ml IV Total 752 ml 828 ml 591 ml Output Urine Total 700 ml 500 ml 450 ml # Voids 2 0 # Bowel Movements 0 0 0 Result Diagram: 09/05/16 1756 09/05/16 0448 Imaging Last 24 hours Impressions Chest X-Ray 09/05/16 0000 Signed Impressions: Service Date/Time: Monday, September 05, 2016 08:56 - CONCLUSION: 1. No acute cardiopulmonary findings. Kali Nava MD Objective Remarks In bed. Dressings dry and intact. No calf tenderness. Assessment & Plan Ortho Post Op Day #: 2 Problem List: Assessment and Plan OOB with PT today. Watch Hg and heart rate. [facility] soon. Gennaro Byrd MD Sep 06, 2016 07:52
[2016-09-06 08:36] LABS: AUTOMATED NEUTROPHIL # 14.6 TH/MM3 (1.8-7.7); BASOPHIL % 0.2 % (0.0-2.0); HEMO FLAGS DIFF FINAL; LYMPH % 8.7 % (9.0-44.0); LYMPHOCYTE # 1.5 TH/MM3 (1.0-4.8); MEAN CELL VOLUME 90.2 FL (80.0-100.0); MEAN CORPUSCULAR HEMOGLOBIN 28.8 PG (27.0-34.0); MEAN CORPUSCULAR HGB CONC 31.9 % (32.0-36.0); MONO % 6.9 % (0.0-8.0); NEUT % 84.2 % (16.0-70.0); PLATELET COUNT 203 TH/MM3 (150-450); RED BLOOD COUNT 2.99 MIL/MM3 (4.00-5.30); RED CELL DISTRIBUTION WIDTH 14.3 % (11.6-17.2); WHITE BLOOD COUNT 17.3 TH/MM3 (4.0-11.0)
[2016-09-06 08:44] LABS: POTASSIUM 3.7 MEQ/L (3.5-5.1)
[2016-09-06 08:46] LABS: MAGNESIUM 1.7 MG/DL (1.5-2.5)
[2016-09-06] MEDS: SODIUM CHLORIDE 0.9% FLUSH 5 ML FLUSH IVF SCH ×2 (09:00→21:06)
[2016-09-06] MEDS: MULTIVITAMINS/MINERALS THERAPEUTIC TAB PO SCH ×2 (09:00→20:59)
[2016-09-06] MEDS: DOCUSATE SODIUM 50 MG/SENNA 8.6 MG TAB PO SCH ×2 (09:00→20:59)
[2016-09-06] MEDS: DOCUSATE SODIUM 100 MG CAP PO SCH ×2 (09:00→20:59)
[2016-09-06] MEDS: guaiFENesin E.R. 600 MG TAB PO SCH ×2 (09:00→20:59)
[2016-09-06] MEDS: LEVOFLOXACIN 750 MG PREMIX INJ 150 ML IV SCH (09:01)
[2016-09-06] MEDS ORDERED: BACITRACIN OINT 0.9 GM PKT TOP PRN (10:15)
[2016-09-06] MEDS: LACTATED RINGER'S 1000 ML INJ 1,000 ML IV SCH ×2 (12:24→21:07)
--- NOTE | 2016-09-06 19:51 | HHI.PR ---
Subjective Remarks Fevers persist. Etiology may be related to anesthesia, but leukocytosis raises concern for infection. Patient reports hot flashes and chills. Objective Vital Signs Date Time Temp Pulse Resp B/P Pulse Ox O2 Delivery O2 Flow Rate FiO2 09/06/16 19:08 Room Air 09/06/16 16:00 99.6 115 18 131/63 97 09/06/16 14:25 18 09/06/16 12:00 102.3 125 18 154/74 97 09/06/16 08:35 97 21 09/06/16 07:20 100.4 118 18 158/77 97 09/06/16 04:10 100.6 119 18 165/68 97 09/06/16 03:46 93 09/06/16 01:10 101.3 116 18 146/64 94 09/05/16 20:15 101.4 116 18 161/76 96 I/O 09/05/16 09/05/16 09/05/16 09/06/16 09/06/16 09/06/16 07:00 15:00 23:00 07:00 15:00 23:00 Intake Total 1160 ml 720 ml 1428 ml 1311 ml 600 ml Output Total 700 ml 500 ml 450 ml Balance 1160 ml 20 ml 928 ml 861 ml 600 ml Intake Oral 408 ml 720 ml 600 ml 720 ml 600 ml IV Total 752 ml 828 ml 591 ml Output Urine Total 700 ml 500 ml 450 ml # Voids 2 0 3 # Bowel Movements 0 0 0 0 Result Diagram: 09/06/16 0610 09/06/16 0610 Procedures Post bilateral Total knee arthroplasty 09/04/16 Objective Remarks GENERAL: NAD, A&Ox3 SKIN: Warm and dry. HEAD: Normocephalic. EYES: No scleral icterus. No injection or drainage. NECK: Supple, trachea midline. No JVD or lymphadenopathy. CARDIOVASCULAR: Regular rate and rhythm without murmurs, gallops, or rubs. RESPIRATORY: Breath sounds equal bilaterally. No accessory muscle use. GASTROINTESTINAL: Abdomen soft, non-tender, nondistended. MUSCULOSKELETAL: No cyanosis, or edema. BACK: Nontender without obvious deformity. No CVA tenderness. A/P Problem List: (1) Osteoarthritis of both knees ICD Code: M17.0 Assessment and Plan Assessment and Plan 46 year old female, status post bilateral knee arthroplasty Post Op, Bilateral Knee Arthroplasty PRN pain treatments PT Ortho following Fevers present post op, may represent anesthesia reaction vs. nonsurgical related infection vs. other Leukocytosis Fever Reactive vs. Infectious Levaquin started Follow for resolution CXR shows no infection Trace bacteria on UA Hypokalemia Follow and replace as needed Anemia IV Iron Follow CBC DVT prophylaxis Kali Bauman MD Sep 06, 2016 19:51
[2016-09-07] VITALS: BP 127/59; PULSE 114; RESP 16; TEMP 101.2; O2SAT 98
[2016-09-07] MEDS: ENOXAPARIN SODIUM 30 MG/0.3 ML SYRINGE SQ SCH ×2 (01:05→14:25)
[2016-09-07] MEDS: RESP: ALBUTEROL 2.5 MG/IPRATROPIUM 0.5 MG NEB (SCH) NEB ×4 (02:49→20:52)
[2016-09-07 04:00] VITALS: PULSE 99; TEMP 99.1
[2016-09-07 08:00] VITALS: BP 117/65; PULSE 103; RESP 18; TEMP 97.6; O2SAT 96
[2016-09-07] MEDS: LEVOFLOXACIN 750 MG PREMIX INJ 150 ML IV SCH (10:04)
[2016-09-07] MEDS: DOCUSATE SODIUM 100 MG CAP PO SCH ×2 (10:05→21:41)
[2016-09-07] MEDS: DOCUSATE SODIUM 50 MG/SENNA 8.6 MG TAB PO SCH ×2 (10:05→21:41)
[2016-09-07] MEDS: MULTIVITAMINS/MINERALS THERAPEUTIC TAB PO SCH ×2 (10:05→21:41)
[2016-09-07] MEDS: guaiFENesin E.R. 600 MG TAB PO SCH ×2 (10:05→21:41)
[2016-09-07] MEDS: SODIUM CHLORIDE 0.9% FLUSH 5 ML FLUSH IVF SCH ×2 (10:06→21:42)
[2016-09-07 11:01] LABS: HEMATOCRIT 24.8 % (35.0-46.0); MEAN CELL VOLUME 89.6 FL (80.0-100.0); MEAN CORPUSCULAR HEMOGLOBIN 28.3 PG (27.0-34.0); MEAN CORPUSCULAR HGB CONC 31.6 % (32.0-36.0); PLATELET COUNT 214 TH/MM3 (150-450); RED BLOOD COUNT 2.77 MIL/MM3 (4.00-5.30); RED CELL DISTRIBUTION WIDTH 14.8 % (11.6-17.2); REVIEW FLAG FINAL; WHITE BLOOD COUNT 15.7 TH/MM3 (4.0-11.0)
[2016-09-07 11:08] LABS: BICARBONATE 27.5 MEQ/L (21.0-32.0); POTASSIUM 3.7 MEQ/L (3.5-5.1)
[2016-09-07 12:00] VITALS: BP 101/58; PULSE 117; RESP 18; TEMP 100.1; O2SAT 95
--- NOTE | 2016-09-07 12:02 | PD.ORT.PN ---
Subjective Post Op Day #: 3 Pain Scale: 5 Subjective Remarks Resting comfortable in bed Alert and awake; no significant complaints, no N/V; pain controlled with medications difficulty getting up out bed; upper ext weakness Objective Vitals Vital Signs Date Time Temp Pulse Resp B/P Pulse Ox O2 Delivery O2 Flow Rate FiO2 09/07/16 08:00 97.6 103 18 117/65 96 09/07/16 04:00 99.1 99 09/07/16 00:00 101.2 114 16 127/59 98 09/06/16 20:00 100.9 109 17 106/59 97 09/06/16 19:08 Room Air 09/06/16 18:51 18 09/06/16 16:00 99.6 115 18 131/63 97 09/06/16 12:00 102.3 125 18 154/74 97 I/O 09/06/16 09/06/16 09/06/16 09/07/16 09/07/16 09/07/16 07:00 15:00 23:00 07:00 15:00 23:00 Intake Total 1311 ml 600 ml 360 ml 360 ml Output Total 450 ml Balance 861 ml 600 ml 360 ml 360 ml Intake Oral 720 ml 600 ml 360 ml 360 ml IV Total 591 ml Output Urine Total 450 ml # Voids 0 3 1 1 # Bowel Movements 0 Result Diagram: 09/07/16 1012 09/07/16 1012 Imaging Last 24 hours Impressions Chest X-Ray 09/05/16 0000 Signed Impressions: Service Date/Time: Monday, September 05, 2016 08:56 - CONCLUSION: 1. No acute cardiopulmonary findings. Kali Nava MD Objective Remarks Alert and oriented x3 VVS Pulmonary: normal respiratory affect Bilateral Knees: Dressings dry and intact. No calf tenderness. Assessment & Plan Assessment and Plan POD 3: bilateral total knees Doing well normal post progress Anticoagulation: DVT prophylaxis: Lovenox while in the hospital Weight bearing status: as tolerated OT for upper ext strengthening OOB with PT. Antibiotics per medical: Levaquin Watch Hg and heart rate. Discharge planning: [facility] as soon as medically cleared. Lacy Yu Sep 07, 2016 12:01
[2016-09-07] MEDS: LACTATED RINGER'S 1000 ML INJ 1,000 ML IV SCH ×2 (13:24→23:45)
[2016-09-07] MEDS: ACETAMINOPHEN 325 MG TAB PO PRN (14:25)
--- NOTE | 2016-09-07 15:31 | HHI.PR ---
Subjective Remarks White blood cell count has decreased today. Fevers are starting to dissipate but remained present intermittently. Patient has no new complaints. She is working well with PT. Objective Vital Signs Date Time Temp Pulse Resp B/P Pulse Ox O2 Delivery O2 Flow Rate FiO2 09/07/16 08:00 97.6 103 18 117/65 96 09/07/16 04:00 99.1 99 09/07/16 00:00 101.2 114 16 127/59 98 09/06/16 20:00 100.9 109 17 106/59 97 09/06/16 19:08 Room Air 09/06/16 18:51 18 09/06/16 16:00 99.6 115 18 131/63 97 I/O 09/06/16 09/06/16 09/06/16 09/07/16 09/07/16 09/07/16 07:00 15:00 23:00 07:00 15:00 23:00 Intake Total 1311 ml 600 ml 360 ml 360 ml Output Total 450 ml Balance 861 ml 600 ml 360 ml 360 ml Intake Oral 720 ml 600 ml 360 ml 360 ml IV Total 591 ml Output Urine Total 450 ml # Voids 0 3 1 1 # Bowel Movements 0 Result Diagram: 09/07/16 1012 09/07/16 1012 Procedures Post bilateral Total knee arthroplasty 09/04/16 Objective Remarks GENERAL: NAD, A&Ox3 SKIN: Warm and dry. HEAD: Normocephalic. EYES: No scleral icterus. No injection or drainage. NECK: Supple, trachea midline. No JVD or lymphadenopathy. CARDIOVASCULAR: Regular rate and rhythm without murmurs, gallops, or rubs. RESPIRATORY: Breath sounds equal bilaterally. No accessory muscle use. GASTROINTESTINAL: Abdomen soft, non-tender, nondistended. MUSCULOSKELETAL: No cyanosis, or edema. Bandages of bilateral anterior knees. BACK: Nontender without obvious deformity. No CVA tenderness. A/P Problem List: (1) Osteoarthritis of both knees ICD Code: M17.0 Assessment and Plan Assessment and Plan 46 year old female, status post bilateral knee arthroplasty. Continue Levaquin for fevers. Monitor CBC. CBC ordered for a.m. Continue PT. Monitor for resolutions of fevers. Post Op, Bilateral Knee Arthroplasty PRN pain treatments PT Ortho following Fevers present post op, may represent anesthesia reaction vs. nonsurgical related infection vs. other Leukocytosis Fever Reactive vs. Infectious Levaquin started Follow for resolution CXR shows no infection Trace bacteria on UA Hypokalemia Follow and replace as needed Anemia IV Iron Follow CBC DVT prophylaxis Kali Bauman MD Sep 07, 2016 15:31
[2016-09-07 20:05] VITALS: BP 98/64; PULSE 109; RESP 16; TEMP 97.9; O2SAT 92
[2016-09-08] VITALS (12 sets, daily range): BP systolic 94–141; BP diastolic 56–78; PULSE 99–110; RESP 16–18; TEMP 98.3–100.4; O2SAT 94–100
[2016-09-08] MEDS: ENOXAPARIN SODIUM 30 MG/0.3 ML SYRINGE SQ SCH ×2 (02:44→14:07)
[2016-09-08] MEDS: RESP: ALBUTEROL 2.5 MG/IPRATROPIUM 0.5 MG NEB (SCH) NEB ×4 (04:05→20:38)
[2016-09-08 07:29] LABS: MEAN CORPUSCULAR HEMOGLOBIN 28.5 PG (27.0-34.0); PLATELET COUNT 223 TH/MM3 (150-450); RED CELL DISTRIBUTION WIDTH 14.2 % (11.6-17.2); WHITE BLOOD COUNT 12.3 TH/MM3 (4.0-11.0)
[2016-09-08 07:37] LABS: REVIEW FLAG FINAL
[2016-09-08 07:39] LABS: HEMATOCRIT 18.7 % (35.0-46.0)
[2016-09-08 07:48] LABS: BICARBONATE 29.4 MEQ/L (21.0-32.0); POTASSIUM 3.5 MEQ/L (3.5-5.1)
[2016-09-08] MEDS ORDERED: SODIUM CHLOR 0.9% 250 ML INJ 250 ML IV ONE (08:15)
[2016-09-08] MEDS ORDERED: FUROSEMIDE 20 MG/2 ML VIAL IV ONE ×2 (08:15→20:00)
[2016-09-08] MEDS ORDERED: ACETAMINOPHEN 325 MG TAB PO PRN ×2 (08:15→20:00)
[2016-09-08] MEDS ORDERED: diphenhydrAMINE HCL 25 MG CAP PO PRN ×3 (08:15→19:45)
[2016-09-08] MEDS: DOCUSATE SODIUM 50 MG/SENNA 8.6 MG TAB PO SCH ×2 (09:00→21:00)
[2016-09-08] MEDS: SODIUM CHLORIDE 0.9% FLUSH 5 ML FLUSH IVF SCH ×2 (09:00→21:18)
[2016-09-08] MEDS: DOCUSATE SODIUM 100 MG CAP PO SCH ×2 (09:00→21:41)
--- NOTE | 2016-09-08 09:05 | PD.ORT.PN ---
Subjective Subjective Remarks pt having less pain today. Wants to do rehab. Objective Vitals Vital Signs Date Time Temp Pulse Resp B/P Pulse Ox O2 Delivery O2 Flow Rate FiO2 09/08/16 08:00 98.9 105 18 94/58 95 09/08/16 04:30 99.3 109 16 100/58 94 09/08/16 04:08 94 21 09/08/16 02:42 96/56 09/08/16 00:05 99.8 109 16 95/60 97 Automatic Cuff 09/07/16 20:05 97.9 109 16 98/64 92 09/07/16 12:00 100.1 117 18 101/58 95 I/O 09/07/16 09/07/16 09/07/16 09/08/16 09/08/16 09/08/16 07:00 15:00 23:00 07:00 15:00 23:00 Intake Total 360 ml 480 ml 240 ml Balance 360 ml 480 ml 240 ml Intake Oral 360 ml 480 ml 240 ml # Voids 1 1 1 # Bowel Movements 0 0 Result Diagram: 09/08/16 0622 09/08/16 0622 Imaging Last 24 hours Impressions Chest X-Ray 09/05/16 0000 Signed Impressions: Service Date/Time: Monday, September 05, 2016 08:56 - CONCLUSION: 1. No acute cardiopulmonary findings. Kali Nava MD Objective Remarks Alert and oriented x3 VVS Pulmonary: normal respiratory affect Bilateral Knees: Dressings dry and intact. No calf tenderness. Assessment & Plan Ortho Post Op Day #: 4 Problem List: Assessment and Plan POD 3: bilateral total knees Repeat Hg Hct and if still about same give 2 units PC. Doing well normal post progress Anticoagulation: DVT prophylaxis: Lovenox while in the hospital Weight bearing status: as tolerated OT for upper ext strengthening OOB with PT. Antibiotics per medical: Levaquin Watch Hg and heart rate. Discharge planning: [facility] as soon as medically cleared. Gennaro Byrd MD Sep 08, 2016 09:05
[2016-09-08] MEDS: guaiFENesin E.R. 600 MG TAB PO SCH ×2 (09:20→21:18)
[2016-09-08] MEDS: MULTIVITAMINS/MINERALS THERAPEUTIC TAB PO SCH ×2 (09:20→21:18)
--- NOTE | 2016-09-08 10:42 | HHI.PR ---
Subjective Remarks Fevers have apparently resolved for now. Steep drop in hemoglobin. Transfusion overnight. Etiology may be related to surgery, anesthesia reaction , or GI losses. May need to consider holding blood thinners if etiology is related to GI losses. Stool studies pending. Objective Vital Signs Date Time Temp Pulse Resp B/P Pulse Ox O2 Delivery O2 Flow Rate FiO2 09/08/16 08:00 98.9 105 18 94/58 95 09/08/16 04:30 99.3 109 16 100/58 94 09/08/16 04:08 94 21 09/08/16 02:42 96/56 09/08/16 00:05 99.8 109 16 95/60 97 Automatic Cuff 09/07/16 20:05 97.9 109 16 98/64 92 09/07/16 12:00 100.1 117 18 101/58 95 I/O 09/07/16 09/07/16 09/07/16 09/08/16 09/08/16 09/08/16 07:00 15:00 23:00 07:00 15:00 23:00 Intake Total 360 ml 480 ml 240 ml Balance 360 ml 480 ml 240 ml Intake Oral 360 ml 480 ml 240 ml # Voids 1 1 1 # Bowel Movements 0 0 Result Diagram: 09/08/1662109/08/16 06 Procedures Post bilateral Total knee arthroplasty 09/04/16 Objective Remarks GENERAL: NAD, A&Ox3 SKIN: Warm and dry. HEAD: Normocephalic. EYES: No scleral icterus. No injection or drainage. NECK: Supple, trachea midline. No JVD or lymphadenopathy. CARDIOVASCULAR: Regular rate and rhythm without murmurs, gallops, or rubs. RESPIRATORY: Breath sounds equal bilaterally. No accessory muscle use. GASTROINTESTINAL: Abdomen soft, non-tender, nondistended. MUSCULOSKELETAL: No cyanosis, or edema. Bandages of bilateral anterior knees. BACK: Nontender without obvious deformity. No CVA tenderness. A/P Problem List: (1) Osteoarthritis of both knees ICD Code: M17.0 Assessment and Plan Assessment and Plan 46 year old female, status post bilateral knee arthroplasty. Continue Levaquin for fevers. Fevers now resolved. Transfuse 2 units of packed red blood cells. Follow H&H. Monitor for any recurrence of fevers. Stool occult studies for evaluation of GI blood loss. Post Op, Bilateral Knee Arthroplasty PRN pain treatments PT Ortho following Fevers present post op, may represent anesthesia reaction vs. nonsurgical related infection vs. other Leukocytosis Fever Reactive vs. Infectious Levaquin started Follow for resolution CXR shows no infection Trace bacteria on UA Hypokalemia Follow and replace as needed Anemia IV Iron Follow CBC DVT prophylaxis LoveKali Olivia MD Sep 08, 2016 10:42
[2016-09-08 12:57] LABS: HEMATOCRIT 20.5 % (35.0-46.0)
[2016-09-08] MEDS: LEVOFLOXACIN 750 MG PREMIX INJ 150 ML IV SCH (13:10)
[2016-09-08] MEDS: LACTATED RINGER'S 1000 ML INJ 1,000 ML IV SCH (14:07)
[2016-09-08] MEDS: ACETAMINOPHEN 325 MG TAB PO PRN ×2 (14:38→21:18)
[2016-09-09] VITALS (7 sets, daily range): BP systolic 104–127; BP diastolic 55–68; PULSE 99–111; RESP 16–19; TEMP 98.5–100.4; O2SAT 96–100
[2016-09-09] MEDS: ENOXAPARIN SODIUM 30 MG/0.3 ML SYRINGE SQ SCH ×2 (01:50→12:09)
[2016-09-09] MEDS: LACTATED RINGER'S 1000 ML INJ 1,000 ML IV SCH ×2 (01:51→15:24)
[2016-09-09] MEDS: RESP: ALBUTEROL 2.5 MG/IPRATROPIUM 0.5 MG NEB (SCH) NEB ×2 (03:16→07:50)
[2016-09-09 07:05] LABS: MEAN CELL VOLUME 87.1 FL (80.0-100.0); MEAN CORPUSCULAR HEMOGLOBIN 30.1 PG (27.0-34.0); MEAN CORPUSCULAR HGB CONC 34.6 % (32.0-36.0); PLATELET COUNT 239 TH/MM3 (150-450); RED BLOOD COUNT 2.53 MIL/MM3 (4.00-5.30); RED CELL DISTRIBUTION WIDTH 14.9 % (11.6-17.2); REVIEW FLAG FINAL; WHITE BLOOD COUNT 10.1 TH/MM3 (4.0-11.0)
[2016-09-09 07:19] LABS: BICARBONATE 30.4 MEQ/L (21.0-32.0); POTASSIUM 3.3 MEQ/L (3.5-5.1)
[2016-09-09] MEDS: MULTIVITAMINS/MINERALS THERAPEUTIC TAB PO SCH ×2 (08:20→20:54)
[2016-09-09] MEDS: guaiFENesin E.R. 600 MG TAB PO SCH ×2 (08:20→20:53)
[2016-09-09] MEDS: LEVOFLOXACIN 750 MG PREMIX INJ 150 ML IV SCH (08:23)
[2016-09-09] MEDS: SODIUM CHLORIDE 0.9% FLUSH 5 ML FLUSH IVF SCH ×2 (08:23→20:54)
[2016-09-09] MEDS: DOCUSATE SODIUM 100 MG CAP PO SCH ×2 (08:23→20:54)
[2016-09-09] MEDS: DOCUSATE SODIUM 50 MG/SENNA 8.6 MG TAB PO SCH ×2 (08:24→20:54)
--- NOTE | 2016-09-09 09:43 | PD.ORT.PN ---
Subjective Subjective Remarks pt comfortable today with no complaints. Wants to do rehab. Objective Vitals Vital Signs Date Time Temp Pulse Resp B/P Pulse Ox O2 Delivery O2 Flow Rate FiO2 09/09/16 07:52 100 21 09/09/16 03:18 98 21 09/09/16 01:45 98.5 99 18 115/68 97 09/08/16 23:12 98.4 104 18 124/66 96 09/08/16 22:50 98.3 99 18 107/69 96 09/08/16 20:00 98.5 100 17 112/66 97 09/08/16 19:10 98.5 100 17 112/66 97 09/08/16 15:20 99.5 105 16 107/57 95 09/08/16 14:07 99.0 110 17 141/78 100 09/08/16 12:00 100.4 103 18 114/69 97 I/O 09/08/16 09/08/16 09/08/16 09/09/16 09/09/16 09/09/16 07:00 15:00 23:00 07:00 15:00 23:00 Intake Total 240 ml 1228 ml 720 ml 480 ml Balance 240 ml 1228 ml 720 ml 480 ml Intake Oral 240 ml 1080 ml 720 ml 480 ml IV Total 148 ml # Voids 1 3 2 3 # Bowel Movements 0 Result Diagram: 09/09/16 0642 09/09/16 0642 Imaging Last 24 hours Impressions Chest X-Ray 09/05/16 0000 Signed Impressions: Service Date/Time: Monday, September 05, 2016 08:56 - CONCLUSION: 1. No acute cardiopulmonary findings. Kali Nava MD Objective Remarks Alert and oriented x3. lying in bed today. Bilateral Knees: Dressings dry and intact. No calf tenderness. Assessment & Plan Ortho Post Op Day #: 5 Problem List: Assessment and Plan POD 5: bilateral total knees Doing well normal post progress Anticoagulation: DVT prophylaxis: Lovenox while in the hospital Weight bearing status: as tolerated OT for upper ext strengthening OOB with PT. Antibiotics per medical: Levaquin Watch Hg and heart rate. Discharge planning: [facility] as soon as medically cleared. Gennaro Byrd MD Sep 09, 2016 09:43
[2016-09-09 15:03] LABS: HEMATOCRIT 24.1 % (35.0-46.0); REVIEW FLAG FINAL
--- NOTE | 2016-09-09 16:57 | HHI.PR ---
Subjective Remarks Fevers are resolving. Transfusion overnight did not hit target as expected and the patient doesn't need immediate transfusion this may represent further blood losses. Stool studies pending. Further monitoring of hemoglobin needed. Objective Vital Signs Date Time Temp Pulse Resp B/P Pulse Ox O2 Delivery O2 Flow Rate FiO2 09/09/16 12:00 98.7 111 18 127/66 100 09/09/16 08:00 98.9 104 18 111/67 97 09/09/16 07:52 100 21 09/09/16 03:18 98 21 09/09/16 01:45 98.5 99 18 115/68 97 09/08/16 23:12 98.4 104 18 124/66 96 09/08/16 22:50 98.3 99 18 107/69 96 09/08/16 20:00 98.5 100 17 112/66 97 09/08/16 19:10 98.5 100 17 112/66 97 I/O 09/08/16 09/08/16 09/08/16 09/09/16 09/09/16 09/09/16 07:00 15:00 23:00 07:00 15:00 23:00 Intake Total 240 ml 1228 ml 720 ml 480 ml Balance 240 ml 1228 ml 720 ml 480 ml Intake Oral 240 ml 1080 ml 720 ml 480 ml IV Total 148 ml # Voids 1 3 2 3 # Bowel Movements 0 Result Diagram: 09/09/16 1403 09/09/16 0642 Procedures Post bilateral Total knee arthroplasty 09/04/16 Objective Remarks GENERAL: NAD, A&Ox3 SKIN: Warm and dry. HEAD: Normocephalic. EYES: No scleral icterus. No injection or drainage. NECK: Supple, trachea midline. No JVD or lymphadenopathy. CARDIOVASCULAR: Regular rate and rhythm without murmurs, gallops, or rubs. RESPIRATORY: Breath sounds equal bilaterally. No accessory muscle use. GASTROINTESTINAL: Abdomen soft, non-tender, nondistended. MUSCULOSKELETAL: No cyanosis, or edema. Bandages of bilateral anterior knees. BACK: Nontender without obvious deformity. No CVA tenderness. A/P Problem List: (1) Osteoarthritis of both knees ICD Code: M17.0 Assessment and Plan Assessment and Plan 46 year old female, status post bilateral knee arthroplasty. Continue Levaquin for fevers. Fevers now resolved. Transfuse 2 units of packed red blood cells. Follow H&H. May need further transfusion if downward trend continues. Monitor H&H. CBC in a.m. Post Op, Bilateral Knee Arthroplasty PRN pain treatments PT Ortho following Fevers present post op, may represent anesthesia reaction vs. nonsurgical related infection vs. other Leukocytosis Fever Reactive vs. Infectious Levaquin started Follow for resolution CXR shows no infection Trace bacteria on UA Hypokalemia Follow and replace as needed Anemia IV Iron Follow CBC DVT prophylaxis Lovenox Kali Ruiz MD Sep 09, 2016 16:57
[2016-09-10] VITALS: BP 101/73; PULSE 100; RESP 16; TEMP 99.4; O2SAT 97
[2016-09-10] MEDS: ENOXAPARIN SODIUM 30 MG/0.3 ML SYRINGE SQ SCH (02:04)
[2016-09-10] MEDS: LACTATED RINGER'S 1000 ML INJ 1,000 ML IV SCH ×2 (02:06→16:24)
[2016-09-10 06:26] LABS: AUTOMATED NEUTROPHIL # 7.5 TH/MM3 (1.8-7.7); BASOPHIL % 0.4 % (0.0-2.0); EOSINOPHIL # 0.4 TH/MM3 (0-0.4); EOSINOPHIL % 3.8 % (0.0-4.0); HEMATOCRIT 21.4 % (35.0-46.0); HEMO FLAGS DIFF FINAL; LYMPH % 16.7 % (9.0-44.0); LYMPHOCYTE # 1.8 TH/MM3 (1.0-4.8); MEAN CELL VOLUME 88.8 FL (80.0-100.0); MEAN CORPUSCULAR HEMOGLOBIN 30.2 PG (27.0-34.0); MEAN CORPUSCULAR HGB CONC 34.1 % (32.0-36.0); MONO % 8.2 % (0.0-8.0); NEUT % 70.9 % (16.0-70.0); PLATELET COUNT 286 TH/MM3 (150-450); RED BLOOD COUNT 2.41 MIL/MM3 (4.00-5.30); RED CELL DISTRIBUTION WIDTH 14.3 % (11.6-17.2); WHITE BLOOD COUNT 10.5 TH/MM3 (4.0-11.0)
[2016-09-10 06:46] LABS: ANION GAP 8 MEQ/L (5-15); AST (GOT) 22 U/L (15-37); BICARBONATE 31.4 MEQ/L (21.0-32.0); BLOOD UREA NITROGEN 7 MG/DL (7-18); CHLORIDE 96 MEQ/L (98-107); GLOMERULAR FILTRATION RATE 249 ML/MIN (>89); POTASSIUM 3.1 MEQ/L (3.5-5.1); SODIUM (NA) 135 MEQ/L (136-145)
[2016-09-10 06:47] LABS: ALT (GPT) 19 U/L (10-53)
[2016-09-10 06:49] LABS: ALKALINE PHOSPHATASE 102 U/L (45-117); TOTAL BILIRUBIN ADULT 0.7 MG/DL (0.2-1.0)
[2016-09-10] MEDS ORDERED: POTASSIUM CHLORIDE 10 MEQ CONTROLLED RELEASE TAB PO ONE (07:45)
[2016-09-10 08:00] VITALS: BP 105/60; PULSE 100; RESP 18; TEMP 98.7; O2SAT 97
[2016-09-10] MEDS: LEVOFLOXACIN 750 MG PREMIX INJ 150 ML IV SCH (08:26)
[2016-09-10] MEDS: DOCUSATE SODIUM 50 MG/SENNA 8.6 MG TAB PO SCH ×2 (08:27→20:16)
[2016-09-10] MEDS: guaiFENesin E.R. 600 MG TAB PO SCH ×2 (08:27→20:16)
[2016-09-10] MEDS: SODIUM CHLORIDE 0.9% FLUSH 5 ML FLUSH IVF SCH ×2 (08:27→20:16)
[2016-09-10] MEDS: MULTIVITAMINS/MINERALS THERAPEUTIC TAB PO SCH ×2 (08:27→20:16)
[2016-09-10] MEDS: DOCUSATE SODIUM 100 MG CAP PO SCH ×2 (08:28→20:16)
--- NOTE | 2016-09-10 10:35 | PD.ORT.PN ---
Subjective Subjective Remarks pt comfortable today with no complaints. Wants to do rehab. Getting PT now. Objective Vitals Vital Signs Date Time Temp Pulse Resp B/P Pulse Ox O2 Delivery O2 Flow Rate FiO2 09/10/16 06:05 18 09/10/16 01:06 Room Air 09/10/16 00:00 99.4 100 16 101/73 97 09/09/16 20:02 100.4 100 16 104/55 96 09/09/16 16:00 98.9 105 19 108/64 99 09/09/16 12:00 98.7 111 18 127/66 100 I/O 09/09/16 09/09/16 09/09/16 09/10/16 09/10/16 09/10/16 07:00 15:00 23:00 07:00 15:00 23:00 Intake Total 480 ml 1080 ml 480 ml Balance 480 ml 1080 ml 480 ml Intake Oral 480 ml 1080 ml 480 ml # Voids 3 4 2 # Bowel Movements 0 Result Diagram: 09/10/16 0507 09/10/16 0507 Imaging Last 24 hours Impressions Chest X-Ray 09/05/16 0000 Signed Impressions: Service Date/Time: Monday, September 05, 2016 08:56 - CONCLUSION: 1. No acute cardiopulmonary findings. Kali Nava MD Objective Remarks Alert and oriented x3. Sitting up in chair. PT in room. Bilateral Knees: Dressings dry and intact. No calf tenderness. Assessment & Plan Ortho Post Op Day #: 6 Problem List: Assessment and Plan POD 6: bilateral total knees Doing well normal post progress Anticoagulation: DVT prophylaxis on hold per medical. Weight bearing status: as tolerated OT for upper ext strengthening OOB with PT. Antibiotics per medical: Levaquin Watch Hg and heart rate. Discharge planning: [facility] as soon as medically cleared. Gennaro Byrd MD Sep 10, 2016 10:35
[2016-09-10 12:00] VITALS: BP 95/60; PULSE 108; RESP 18; TEMP 99.3; O2SAT 98
[2016-09-10] MEDS ORDERED: SODIUM CHLOR 0.9% 250 ML INJ 250 ML IV ONE (13:00)
--- NOTE | 2016-09-10 14:03 | HHI.PR ---
Subjective Remarks Downward trend in hemoglobin. Transfuse 1 unit today. Patient does not report any obvious blood in her GI output. No new complaints from the patient. Objective Vital Signs Date Time Temp Pulse Resp B/P Pulse Ox O2 Delivery O2 Flow Rate FiO2 09/10/16 08:00 98.7 100 18 105/60 97 09/10/16 06:05 18 09/10/16 01:06 Room Air 09/10/16 00:00 99.4 100 16 101/73 97 09/09/16 20:02 100.4 100 16 104/55 96 09/09/16 16:00 98.9 105 19 108/64 99 I/O 09/09/16 09/09/16 09/09/16 09/10/16 09/10/16 09/10/16 06:59 14:59 22:59 06:59 14:59 22:59 Intake Total 480 ml 1080 ml 480 ml Balance 480 ml 1080 ml 480 ml Intake Oral 480 ml 1080 ml 480 ml # Voids 3 4 2 # Bowel Movements 0 Result Diagram: 09/10/16 0507 09/10/16 0507 Procedures Post bilateral Total knee arthroplasty 09/04/16 Objective Remarks GENERAL: NAD, A&Ox3 SKIN: Warm and dry. HEAD: Normocephalic. EYES: No scleral icterus. No injection or drainage. NECK: Supple, trachea midline. No JVD or lymphadenopathy. CARDIOVASCULAR: Regular rate and rhythm without murmurs, gallops, or rubs. RESPIRATORY: Breath sounds equal bilaterally. No accessory muscle use. GASTROINTESTINAL: Abdomen soft, non-tender, nondistended. MUSCULOSKELETAL: No cyanosis, or edema. Bandages of bilateral anterior knees. BACK: Nontender without obvious deformity. No CVA tenderness. A/P Problem List: (1) Osteoarthritis of both knees ICD Code: M17.0 Assessment and Plan Assessment and Plan 46 year old female, status post bilateral knee arthroplasty. Continue Levaquin for fevers. Fevers now resolved. Transfuse 1 unit of packed red blood cells today. Continue to monitor H&H. CBC in AM. Continue to monitor for resolution of fevers. Antibiotics continued. Post Op, Bilateral Knee Arthroplasty PRN pain treatments PT Ortho following Fevers present post op, may represent anesthesia reaction vs. nonsurgical related infection vs. other Leukocytosis Fever Reactive vs. Infectious Levaquin started Follow for resolution CXR shows no infection Trace bacteria on UA Hypokalemia Follow and replace as needed Anemia IV Iron Follow CBC DVT prophylaxis Kali Bauman MD Sep 10, 2016 2:03 pm
[2016-09-10 16:55] VITALS: BP 106/66; PULSE 110; RESP 22; TEMP 97.9; O2SAT 96
[2016-09-10 17:12] VITALS: BP 103/56; PULSE 98; RESP 22; TEMP 99.2
[2016-09-10 19:35] VITALS: BP 123/68; PULSE 99; RESP 18; TEMP 100.5; O2SAT 99
[2016-09-11] VITALS: BP 110/62; PULSE 97; RESP 17; TEMP 98.5; O2SAT 98
[2016-09-11] MEDS: LACTATED RINGER'S 1000 ML INJ 1,000 ML IV SCH ×2 (04:46→13:23)
[2016-09-11 07:00] LABS: AUTOMATED NEUTROPHIL # 8.1 TH/MM3 (1.8-7.7); BASOPHIL % 0.4 % (0.0-2.0); EOSINOPHIL # 0.4 TH/MM3 (0-0.4); EOSINOPHIL % 3.8 % (0.0-4.0); HEMATOCRIT 23.6 % (35.0-46.0); LYMPH % 12.9 % (9.0-44.0); LYMPHOCYTE # 1.4 TH/MM3 (1.0-4.8); MEAN CELL VOLUME 88.5 FL (80.0-100.0); MEAN CORPUSCULAR HEMOGLOBIN 29.5 PG (27.0-34.0); MEAN CORPUSCULAR HGB CONC 33.3 % (32.0-36.0); MONO % 7.9 % (0.0-8.0); PLATELET COUNT 375 TH/MM3 (150-450); RED BLOOD COUNT 2.67 MIL/MM3 (4.00-5.30); RED CELL DISTRIBUTION WIDTH 14.3 % (11.6-17.2); WHITE BLOOD COUNT 10.8 TH/MM3 (4.0-11.0)
[2016-09-11 07:02] LABS: HEMO FLAGS AUTO DIFF
[2016-09-11 07:25] LABS: ANION GAP 8 MEQ/L (5-15); AST (GOT) 18 U/L (15-37); BICARBONATE 31.1 MEQ/L (21.0-32.0); BLOOD UREA NITROGEN 7 MG/DL (7-18); CHLORIDE 97 MEQ/L (98-107); GLOMERULAR FILTRATION RATE 249 ML/MIN (>89); POTASSIUM 3.2 MEQ/L (3.5-5.1); SODIUM (NA) 136 MEQ/L (136-145)
[2016-09-11 07:27] LABS: ALT (GPT) 17 U/L (10-53)
[2016-09-11 07:29] LABS: ALKALINE PHOSPHATASE 91 U/L (45-117); TOTAL BILIRUBIN ADULT 0.7 MG/DL (0.2-1.0)
[2016-09-11 08:00] VITALS: BP 111/66; PULSE 99; RESP 16; TEMP 98.9; O2SAT 98
[2016-09-11] MEDS ORDERED: POTASSIUM CHLORIDE 10 MEQ CONTROLLED RELEASE TAB PO ONE (08:00)
[2016-09-11 08:27] LABS: POLYCHROMASIA 2.2 % (0.0-1.9)
[2016-09-11 08:28] LABS: OVALOCYTES 1+ (NORMAL); SCAN/DIFF AUTO DIFF CONFIRMED
[2016-09-11] MEDS: DOCUSATE SODIUM 100 MG CAP PO SCH ×2 (09:00→21:35)
[2016-09-11] MEDS: SODIUM CHLORIDE 0.9% FLUSH 5 ML FLUSH IVF SCH ×2 (09:00→21:00)
[2016-09-11] MEDS: DOCUSATE SODIUM 50 MG/SENNA 8.6 MG TAB PO SCH ×2 (09:00→21:36)
[2016-09-11] MEDS: MULTIVITAMINS/MINERALS THERAPEUTIC TAB PO SCH ×2 (09:31→21:35)
[2016-09-11] MEDS: guaiFENesin E.R. 600 MG TAB PO SCH ×2 (09:31→21:35)
[2016-09-11] MEDS: LEVOFLOXACIN 750 MG PREMIX INJ 150 ML IV SCH (09:32)
--- NOTE | 2016-09-11 11:24 | HHI.DS ---
Discharge Summary Admission Date Sep 04, 2016 at 05:55 Discharge Date: Sep 12, 2016 Admitting Diagnosis Osteoarthritic degeneration right and left knees Diagnosis: (1) Status post bilateral knee replacements Diagnosis: Principal Brief History This is a 46 year old female patient CBC/BMP: 09/11/16 0637 09/11/16 0637 Significant Findings Laboratory Tests Test 09/08/16 09/09/16 09/09/16 09/10/16 12:25 06:42 14:03 05:07 Hemoglobin 6.6 GM/DL 7.6 GM/DL 8.2 GM/DL 7.3 GM/DL (11.6-15.3) (11.6-15.3) (11.6-15.3) (11.6-15.3) Hematocrit 20.5 % 22.0 % 24.1 % 21.4 % (35.0-46.0) (35.0-46.0) (35.0-46.0) (35.0-46.0) Red Blood Count 2.53 MIL/MM3 2.41 MIL/MM3 (4.00-5.30) (4.00-5.30) Sodium Level 135 MEQ/L 135 MEQ/L (136-145) (136-145) Potassium Level 3.3 MEQ/L 3.1 MEQ/L (3.5-5.1) (3.5-5.1) Chloride Level 96 MEQ/L 96 MEQ/L (98-107) (98-107) Creatinine 0.38 MG/DL 0.34 MG/DL (0.50-1.00) (0.50-1.00) Neutrophils (%) (Auto) 70.9 % (16.0-70.0) Monocytes (%) (Auto) 8.2 % (0.0-8.0) Albumin 1.9 GM/DL (3.4-5.0) Test 09/11/16 06:37 Red Blood Count 2.67 MIL/MM3 (4.00-5.30) Hemoglobin 7.9 GM/DL (11.6-15.3) Hematocrit 23.6 % (35.0-46.0) Neutrophils (%) (Auto) 75.0 % (16.0-70.0) Neutrophils # (Auto) 8.1 TH/MM3 (1.8-7.7) Polychromasia 2.2 % (0.0-1.9) Ovalocytes 1+ (NORMAL) Potassium Level 3.2 MEQ/L (3.5-5.1) Chloride Level 97 MEQ/L (98-107) Creatinine 0.34 MG/DL (0.50-1.00) Random Glucose 107 MG/DL (74-106) Albumin 2.0 GM/DL (3.4-5.0) PE at Discharge Alert and oriented x3. Sitting up in chair. PT in room. Bilateral Knees: Dressings dry and intact. No calf tenderness. Hospital Course Patient underwent bilateral total knee arthroplasties on day of admission. She received a course of prophylactic IV antibiotics and within 23 hours started on anticoagulation therapy. She began out of bed tolerating food and fluids well. She did have a bout with fever and low hemoglobin which was managed by the medical team. She continued to improve with therapy and daily wound care tolerating food and fluid well. She was discharged to inpatient rehabilitation on postoperative day 8 in good condition with instructions for continued rehabilitation and wound care. She tolerated by mouth pain meds from postoperative day #2. Pt Condition on Discharge: Good Discharge Disposition: Rehab Inpatient Discharge Instructions Diet Instructions: As Tolerated, No Restrictions Activities You Can Perform: Weight Bearing as Ana, Shower Only-No Bath Activities to Avoid: Bathing, Driving Gennaro Byrd MD Sep 11, 2016 11:24
--- NOTE | 2016-09-11 11:25 | PD.ORT.PN ---
Subjective Subjective Remarks pt comfortable today with no complaints. Wants to do rehab. Getting PT now. Objective Vitals Vital Signs Date Time Temp Pulse Resp B/P Pulse Ox O2 Delivery O2 Flow Rate FiO2 09/11/16 08:00 98.9 99 16 111/66 98 09/11/16 06:14 18 09/11/16 04:06 Room Air 09/11/16 00:00 98.5 97 17 110/62 98 09/10/16 19:35 100.5 99 18 123/68 99 09/10/16 17:12 99.2 98 22 103/56 09/10/16 16:55 97.9 110 22 106/66 96 09/10/16 12:00 99.3 108 18 95/60 98 I/O 09/10/16 09/10/16 09/10/16 09/11/16 09/11/16 09/11/16 07:00 15:00 23:00 07:00 15:00 23:00 Intake Total 480 ml 960 ml 430 ml Balance 480 ml 960 ml 430 ml Intake Oral 480 ml 960 ml 430 ml # Voids 2 5 2 # Bowel Movements 1 0 Result Diagram: 09/11/16 0637 09/11/16 0637 Imaging Last 24 hours Impressions Chest X-Ray 09/05/16 0000 Signed Impressions: Service Date/Time: Monday, September 05, 2016 08:56 - CONCLUSION: 1. No acute cardiopulmonary findings. Kali Nava MD Objective Remarks Alert and oriented x3. Sitting up in chair. PT in room. Bilateral Knees: Dressings dry and intact. No calf tenderness. Assessment & Plan Ortho Post Op Day #: 7 Problem List: (1) Status post bilateral knee replacements Assessment and Plan POD 7: bilateral total knees Doing well normal post progress Anticoagulation: DVT prophylaxis on hold per medical. Weight bearing status: as tolerated OT for upper ext strengthening OOB with PT. Antibiotics per medical: Levaquin Watch Hg and heart rate. Discharge planning: [facility] as soon as medically cleared. Gennaro Byrd MD Sep 11, 2016 11:25
[2016-09-11 12:00] VITALS: BP 99/65; PULSE 108; RESP 18; TEMP 96.2; O2SAT 96
[2016-09-11 16:00] VITALS: BP 115/60; PULSE 96; RESP 18; TEMP 98.2; O2SAT 99
[2016-09-11] MEDS ORDERED: POTA20TA5 PO (16:54)
[2016-09-11] MEDS ORDERED: REST15CA PO (16:54)
[2016-09-11] MEDS ORDERED: OXYC-392 PO (16:54)
[2016-09-11] MEDS ORDERED: LEVA750T9 PO (16:54)
[2016-09-11] MEDS ORDERED: SENN8.6T15 PO (16:54)
[2016-09-11] MEDS ORDERED: DOCU1CAP39 PO (16:54)
--- NOTE | 2016-09-11 18:02 | HHI.PR ---
Subjective Remarks Hbg lower than expected with transfusion yesterday. Potassium level low this morning and replaced. I have blood work ordered for noon to recheck both of these values. Clearance for discharge pending results of this blood work. Objective Vital Signs Date Time Temp Pulse Resp B/P Pulse Ox O2 Delivery O2 Flow Rate FiO2 09/11/16 16:00 98.2 96 18 115/60 99 09/11/16 12:00 96.2 108 18 99/65 96 09/11/16 08:00 98.9 99 16 111/66 98 09/11/16 06:14 18 09/11/16 04:06 Room Air 09/11/16 00:00 98.5 97 17 110/62 98 09/10/16 19:35 100.5 99 18 123/68 99 I/O 09/10/16 09/10/16 09/10/16 09/11/16 09/11/16 09/11/16 07:00 15:00 23:00 07:00 15:00 23:00 Intake Total 480 ml 960 ml 430 ml 888 ml Output Total 400 ml Balance 480 ml 960 ml 430 ml 488 ml Intake Oral 480 ml 960 ml 430 ml 720 ml IV Total 168 ml Stool Total 400 ml # Voids 2 5 2 3 # Bowel Movements 1 0 Result Diagram: 09/11/1637 09/11/16636 Procedures Post bilateral Total knee arthroplasty 09/04/16 Objective Remarks GENERAL: NAD, A&Ox3 SKIN: Warm and dry. HEAD: Normocephalic. EYES: No scleral icterus. No injection or drainage. NECK: Supple, trachea midline. No JVD or lymphadenopathy. CARDIOVASCULAR: Regular rate and rhythm without murmurs, gallops, or rubs. RESPIRATORY: Breath sounds equal bilaterally. No accessory muscle use. GASTROINTESTINAL: Abdomen soft, non-tender, nondistended. MUSCULOSKELETAL: No cyanosis, or edema. Bandages of bilateral anterior knees. BACK: Nontender without obvious deformity. No CVA tenderness. A/P Problem List: (1) Osteoarthritis of both knees ICD Code: M17.0 Assessment and Plan Assessment and Plan 46 year old female, status post bilateral knee arthroplasty. Continue Levaquin for fevers. Fevers now resolved. Transfuse 1 unit of packed red blood cells yesterday. Follow up H/H today at noon. Follow up potassium level today. Potassium supplement provided this morning secondary to hypokalemia. Post Op, Bilateral Knee Arthroplasty PRN pain treatments PT Ortho following Fevers present post op, may represent anesthesia reaction vs. nonsurgical related infection vs. other Leukocytosis Fever Reactive vs. Infectious Levaquin started Follow for resolution CXR shows no infection Trace bacteria on UA Hypokalemia Follow and replace as needed Anemia IV Iron Follow CBC DVT prophylaxis Lovenox Kali Ruiz MD Sep 11, 2016 18:02
[2016-09-11 20:00] VITALS: BP 113/72; PULSE 98; RESP 17; TEMP 98.9; O2SAT 99
[2016-09-11 21:38] LABS: HEMATOCRIT 24.5 % (35.0-46.0); REVIEW FLAG FINAL
[2016-09-12] VITALS: BP 115/70; PULSE 95; RESP 16; TEMP 98.8; O2SAT 93
[2016-09-12] MEDS: LACTATED RINGER'S 1000 ML INJ 1,000 ML IV SCH (00:39)
[2016-09-12 06:00] LABS: HEMATOCRIT 23.9 % (35.0-46.0); MEAN CELL VOLUME 89.4 FL (80.0-100.0); MEAN CORPUSCULAR HEMOGLOBIN 29.6 PG (27.0-34.0); MEAN CORPUSCULAR HGB CONC 33.1 % (32.0-36.0); PLATELET COUNT 437 TH/MM3 (150-450); RED BLOOD COUNT 2.68 MIL/MM3 (4.00-5.30); RED CELL DISTRIBUTION WIDTH 14.1 % (11.6-17.2); REVIEW FLAG FINAL; WHITE BLOOD COUNT 10.6 TH/MM3 (4.0-11.0)
[2016-09-12 06:14] LABS: PROTHROMBIN TIME - PATIENT 11.6 SEC (9.8-11.6)
[2016-09-12 06:37] LABS: BICARBONATE 32.4 MEQ/L (21.0-32.0); POTASSIUM 3.3 MEQ/L (3.5-5.1)
[2016-09-12 08:00] VITALS: BP 108/68; PULSE 94; RESP 20; TEMP 98; O2SAT 98
[2016-09-12] MEDS ORDERED: POTASSIUM CHLORIDE 10 MEQ CONTROLLED RELEASE TAB PO ONE (08:30)
[2016-09-12] MEDS: SODIUM CHLORIDE 0.9% FLUSH 5 ML FLUSH IVF SCH (09:00)
[2016-09-12] MEDS: DOCUSATE SODIUM 100 MG CAP PO SCH (09:00)
[2016-09-12] MEDS: DOCUSATE SODIUM 50 MG/SENNA 8.6 MG TAB PO SCH (09:00)
[2016-09-12] MEDS ORDERED: POTASSIUM CHLORIDE 20 MEQ CONTROLLED RELEASE TAB PO SCH (09:00)
[2016-09-12] MEDS: guaiFENesin E.R. 600 MG TAB PO SCH (09:14)
[2016-09-12] MEDS: MULTIVITAMINS/MINERALS THERAPEUTIC TAB PO SCH (09:14)
--- NOTE | 2016-09-12 09:21 | HHI.PR ---
Subjective Remarks Hemoglobin show stability and latest blood work. No need for transfusion. Potassium levels remained borderline low but also show stability and should improve with supplementation through time. No further fevers. Patient is medically stable for discharge to inpatient rehabilitation. Objective Vital Signs Date Time Temp Pulse Resp B/P Pulse Ox O2 Delivery O2 Flow Rate FiO2 09/12/16 00:00 98.8 95 16 115/70 93 Manual Cuff/Auscultation 09/11/16 20:00 98.9 98 17 113/72 99 09/11/16 16:00 98.2 96 18 115/60 99 09/11/16 12:00 96.2 108 18 99/65 96 I/O 09/11/16 09/11/16 09/11/16 09/12/16 09/12/16 09/12/16 07:00 15:00 23:00 07:00 15:00 23:00 Intake Total 430 ml 888 ml 480 ml 480 ml Output Total 400 ml Balance 430 ml 488 ml 480 ml 480 ml Intake Oral 430 ml 720 ml 480 ml 480 ml IV Total 168 ml Stool Total 400 ml # Voids 2 3 3 3 # Bowel Movements 0 0 0 Result Diagram: 09/12/16 0540 09/12/16 0540 Procedures Post bilateral Total knee arthroplasty 09/04/16 Objective Remarks GENERAL: NAD, A&Ox3 SKIN: Warm and dry. HEAD: Normocephalic. EYES: No scleral icterus. No injection or drainage. NECK: Supple, trachea midline. No JVD or lymphadenopathy. CARDIOVASCULAR: Regular rate and rhythm without murmurs, gallops, or rubs. RESPIRATORY: Breath sounds equal bilaterally. No accessory muscle use. GASTROINTESTINAL: Abdomen soft, non-tender, nondistended. MUSCULOSKELETAL: No cyanosis, or edema. Bandages of bilateral anterior knees. BACK: Nontender without obvious deformity. No CVA tenderness. A/P Problem List: (1) Osteoarthritis of both knees ICD Code: M17.0 Assessment and Plan Assessment and Plan 46 year old female, status post bilateral knee arthroplasty. Continue Levaquin for fevers. Fevers resolved. Hemoglobin stable. Potassium level stable. Medically stable for discharge. Post Op, Bilateral Knee Arthroplasty PRN pain treatments PT Ortho following Fevers present post op, may represent anesthesia reaction vs. nonsurgical related infection vs. other Leukocytosis Fever Resolved Hypokalemia Continue supplementation for one week Follow-up potassium level in 3 days Anemia Stabilized Follow-up H&H in 3 days Discharge planning Discharge to inpatient rehabilitation today Kali Ruiz MD Sep 12, 2016 9:21 am
[2016-09-12] MEDS ORDERED: LEVOFLOXACIN 750 MG TAB PO SCH (11:00)
[2016-09-12 11:35] VITALS: BP 112/68; PULSE 107; RESP 20; TEMP 98.5; O2SAT 99
== END 2016-09-12 12:01 | DRG 462 ==
LOC: HSDI 09-04 05:55 → N06A 09-04 19:11
PROVIDERS: ADMIT Surgery; ATTEND Surgery
PROC: 0SRC0JA Replacement of Right Knee Joint with Synthetic Substitute, Uncemented, Open Approach (ICD-10-PCS; 2016-09-04)
PROC: 3E0T3CZ (ICD-10-PCS; 2016-09-04)
PROC: 3E0T3CZ (ICD-10-PCS; 2016-09-04)
PROC: 0SRD0JA Replacement of Left Knee Joint with Synthetic Substitute, Uncemented, Open Approach (ICD-10-PCS; principal; 2016-09-04 09:45)
PROC: 30233N1 Transfusion of Nonautologous Red Blood Cells into Peripheral Vein, Percutaneous Approach (ICD-10-PCS; 2016-09-08)
DX: M17.0 Bilateral primary osteoarthritis of knee (principal); E87.6 Hypokalemia; R50.9 Fever, unspecified; D50.9 Iron deficiency anemia, unspecified; Z82.49 Family history of ischemic heart disease and other diseases of the circulatory system; Z93.3 Colostomy status; Z83.3 Family history of diabetes mellitus
CPT/HCPCS: 36430; 71010; 73560; 76937; 80048; 80053; 80061; 81001; 82272; 82607; 82652; 82746; 83036; 83735; 84132; 84443; 85014; 85018; 85025; 85027; 85610; 86850; 86900; 86901; 86920; 87040; 94150; 94640; 94664; C1776; C9290; J0690; J1650; J1940; J1956; J2250; J2270; J2405; J2710; J3010; J3370; J7050; J7120; L1830; P9016

== ENCOUNTER → 2016-11-21 | Outpatient (CLI) | payer BC ==
[~2016-11-21] MED LIST changes: +DIATRIZOATE MEGLUM/DIATRIZOATE SOD 120 ML BTL (for RAD DIAG) RECTAL ONE; +DOCU1CAP39 PO; +FERR325T20 PO; -IBUP800T23 PO; +OXYC-392 PO; +POTA20TA5 PO
--- NOTE | 2016-11-21 11:43 | RADRPT ---
EXAM DATE/TIME: 11/21/2016 09:46 [facility] COMPARISON: No previous studies available for comparison. INDICATIONS : Reversal of colostomy. FLUORO TIME: 4.9 minutes IMAGE COUNT: 17 CONTRAST: 1. Gastroview MEDICAL HISTORY : Anemia. SURGICAL HISTORY : Appendectomy. hysterectomy and colostomy 07/2015 ENCOUNTER: Initial ACUITY: 1 day PAIN SCORE: 0/10 LOCATION: Bilateral abdomen FINDINGS: Preliminary film is unremarkable. Under fluoroscopic guidance a Gastrografin enema was performed. There was significant difficulty in k eeping the catheter in place and preventing spillage of contrast externally. Therefore the rectal por tion of the examination is limited. On the overhead view, there is contrast seen extending to the exp ected location of the rectal stump terminus. Subsequently the colostomy in the left lower quadrant wa s catheterized, and contrast instilled by gravity drainage flowing freely to the level of the ascendi ng colon before spillage occurred despite attempts at recatheterization several times, we were unable to instill more contrast. There are no dilated loops of bowel. The visualized large bowel is unremar kable. No extravasation is seen. CONCLUSION: Limited but unremarkable Gastrografin enema. Leif Biswas MD on November 21, 2016 at 11:39 Board Certified Radiologist. This report was verified electronically.
== END ==
LOC: HRAD 09:23
PROVIDERS: ATTEND Surgery Trauma Surgery
DX: Z93.3 Colostomy status (principal)
CPT/HCPCS: 74270; Q9963

== ENCOUNTER 2017-01-17 05:21 | Inpatient (IN) | payer BC ==
[~2017-01-17] VITALS: Ht 185.4 cm; Wt 114.6 kg
[2017-01-17] VITALS (7 sets, daily range): BP systolic 106–146; BP diastolic 48–81; PULSE 68–82; RESP 18–21; TEMP 98.6–98.9; O2SAT 98–100
[2017-01-17] MEDS ORDERED: ACETAMINOPHEN 1000 MG/100 ML 100 ML IV SCH (06:00)
[2017-01-17] MEDS ORDERED: ALVIMOPAN 12 MG CAPSULE - On Call PO SCH (06:00)
[2017-01-17] MEDS ORDERED: LACTATED RINGER'S 1000 ML IV PRN (06:00)
[2017-01-17] MEDS ORDERED: POVIDONE IODINE 5% (ANTISEPSIS KIT) 4 APPLICATIONS EACH NARE PRN (06:00)
[2017-01-17] MEDS ORDERED: SODIUM CHLORID 0.9% 500 ML IV PRN (06:00)
[2017-01-17] MEDS ORDERED: ceFAZolin 1,000 MG/NS 100 ML IV SCH ×2 (06:00)
[2017-01-17] MEDS ORDERED: METOPROLOL TARTRATE 25 MG TAB PO PRN (06:00)
[2017-01-17] MEDS ORDERED: CHLORHEXIDINE GLUCONATE 2 % 1 PACK (2 CLOTHS) TOPICAL PRN (06:00)
[2017-01-17] MEDS ORDERED: metroNIDAZOLE 500 MG INJ 100 ML IV SCH (06:00)
[2017-01-17] MEDS ORDERED: METH2.5T PO (06:14)
[2017-01-17] MEDS ORDERED: MAPA500C PO (06:14)
[2017-01-17] MEDS ORDERED: PRED5TAB PO (06:14)
[2017-01-17] MEDS ORDERED: FOLI400T PO (06:14)
[2017-01-17] MEDS ORDERED: ACETAMINOPHEN 1000 MG/100 ML 100 ML IV ONE (06:50)
[2017-01-17 06:51] LABS: AUTOMATED NEUTROPHIL # 3.4 TH/MM3 (1.8-7.7); BASOPHIL # 0.1 TH/MM3 (0-0.2); BASOPHIL % 0.9 % (0.0-2.0); EOSINOPHIL # 0.1 TH/MM3 (0-0.4); EOSINOPHIL % 2.1 % (0.0-4.0); HEMATOCRIT 34.2 % (35.0-46.0); HEMO FLAGS DIFF FINAL; LYMPH % 29.2 % (9.0-44.0); LYMPHOCYTE # 1.7 TH/MM3 (1.0-4.8); MEAN CELL VOLUME 90.8 FL (80.0-100.0); MEAN CORPUSCULAR HEMOGLOBIN 29.9 PG (27.0-34.0); MEAN CORPUSCULAR HGB CONC 32.9 % (32.0-36.0); MONO % 7.6 % (0.0-8.0); NEUT % 60.2 % (16.0-70.0); PLATELET COUNT 273 TH/MM3 (150-450); RED BLOOD COUNT 3.76 MIL/MM3 (4.00-5.30); RED CELL DISTRIBUTION WIDTH 14.6 % (11.6-17.2); WHITE BLOOD COUNT 5.7 TH/MM3 (4.0-11.0)
[2017-01-17 06:55] LABS: PROTHROMBIN TIME - PATIENT 11.3 SEC (9.8-11.6)
[2017-01-17 07:04] LABS: BICARBONATE 29.2 MEQ/L (21.0-32.0); POTASSIUM 3.3 MEQ/L (3.5-5.1)
[2017-01-17] MEDS ORDERED: FAMOTIDINE 20 MG/2 ML VIAL ONE (07:19)
--- NOTE | 2017-01-17 08:59 | EKG ---
Date Performed: 01/17/2017 Time Performed: 06:18:19 PTAGE: 46 years EKG: Sinus rhythm POSSIBLE RIGHT VENTRICULAR CONDUCTION DELAY BORDERLINE ECG NO PREVIOUS TRACING DOCTOR: Kali Gagnon Interpretating Date/Time 01/17/2017 08:58:20
[2017-01-17] MEDS ORDERED: BUPIVACAINE/EPINEPHRINE 0.25% PF 30 ML VIAL ONE (10:17)
--- NOTE | 2017-01-17 10:43 | HHI.PR ---
cc: Kaveh Calderon MD Immediate Post Op Note Procedure Date: Jan 17, 2017 Pre Op Diagnosis: S/P colostomy for perforated diverticulitis Post Op Diagnosis: Same Surgeon: Kaveh Calderon [employer] Cr[employer] Operator(s): Aba Craig MD Procedure: Colostomy takedown Rigid proctoscopy Complications: None Estimated blood loss: 50 ml Anesthesia: General Drains: None IVF (2600 ml) Patient to: PACU Patient Condition: Good Date/Time of Procedure: SEE SURGICAL CARE RECORD Kaveh Calderon MD Jan 17, 2017 10:43
[2017-01-17] MEDS ORDERED: ACETAMINOPHEN/HYDROcodone 325 MG/5 MG TAB PO PRN ×2 (10:45)
[2017-01-17] MEDS ORDERED: diphenhydrAMINE HCL 50 MG/ML VIAL IVP PRN (10:45)
[2017-01-17] MEDS ORDERED: MORPHINE SULFATE 30 MG/30 ML PCA IV SCH (10:45)
[2017-01-17] MEDS ORDERED: NALOXONE HCL 0.4 MG/ML AMP IV PUSH PRN (10:45)
[2017-01-17] MEDS ORDERED: Post-op Orders (for Pharmacy) MISC XX ONE (10:45)
[2017-01-17] MEDS ORDERED: SODIUM CHLORIDE 0.9% FLUSH 5 ML FLUSH IVF PRN (10:45)
[2017-01-17] MEDS ORDERED: *MEPERIDINE 25 MG INJ VIAL PERIprocedural Use ONLY ONE (10:58)
[2017-01-17] MEDS ORDERED: *ONDANSETRON 4 MG VIAL PERIprocedural Use ONLY ONE (11:30)
[2017-01-17] MEDS: HYDROmorphone HCL PF 1 MG/ML VIAL IV PUSH PRN (12:06)
[2017-01-17] MEDS: D5-NS + KCL 20 MEQ INJ 1,000 ML IV SCH ×2 (12:10→19:55)
[2017-01-17] MEDS: ONDANSETRON HCL 4 MG/2 ML VIAL IV PUSH PRN (13:18)
[2017-01-17] MEDS ORDERED: oxyCODONE/ACETAMINOPHEN 7.5 MG/325 MG TAB PO PRN (14:15)
[2017-01-17] MEDS: metroNIDAZOLE 500 MG INJ 100 ML IV SCH ×2 (19:46→23:06)
[2017-01-17] MEDS: ceFAZolin 2 GM PREMIX 50 ML IV SCH ×2 (19:47→22:26)
[2017-01-17] MEDS: SODIUM CHLORIDE 0.9% FLUSH 5 ML FLUSH IVF SCH (21:00)
[2017-01-17] MEDS: oxyCODONE/ACETAMINOPHEN 7.5 MG/325 MG TAB PO PRN (21:21)
[2017-01-17] MEDS: PCA - TOTAL MG MORPHINE DELIVERED PER SHIFT SCH (22:00)
[2017-01-18] VITALS (12 sets, daily range): BP systolic 109–132; BP diastolic 64–75; PULSE 69–93; RESP 15–22; TEMP 98.6–99.5; O2SAT 94–100
[2017-01-18] MEDS: oxyCODONE/ACETAMINOPHEN 7.5 MG/325 MG TAB PO PRN ×4 (02:34→20:26)
[2017-01-18 04:36] LABS: POTASSIUM 3.6 MEQ/L (3.5-5.1)
[2017-01-18 04:56] LABS: AUTOMATED NEUTROPHIL # 11.2 TH/MM3 (1.8-7.7); BASOPHIL % 0.1 % (0.0-2.0); HEMATOCRIT 32.4 % (35.0-46.0); HEMO FLAGS DIFF FINAL; LYMPH % 11.1 % (9.0-44.0); LYMPHOCYTE # 1.5 TH/MM3 (1.0-4.8); MEAN CELL VOLUME 90.7 FL (80.0-100.0); MEAN CORPUSCULAR HGB CONC 33.1 % (32.0-36.0); MONO % 5.7 % (0.0-8.0); NEUT % 83.1 % (16.0-70.0); PLATELET COUNT 257 TH/MM3 (150-450); RED BLOOD COUNT 3.57 MIL/MM3 (4.00-5.30); RED CELL DISTRIBUTION WIDTH 14.9 % (11.6-17.2); WHITE BLOOD COUNT 13.5 TH/MM3 (4.0-11.0)
[2017-01-18] MEDS: D5-NS + KCL 20 MEQ INJ 1,000 ML IV SCH ×5 (05:24→23:28)
[2017-01-18] MEDS: PCA - TOTAL MG MORPHINE DELIVERED PER SHIFT SCH ×2 (06:00→14:00)
[2017-01-18] MEDS: metroNIDAZOLE 500 MG INJ 100 ML IV SCH (06:52)
[2017-01-18] MEDS: ALVIMOPAN 12 MG CAPSULE - Post-op dosing PO SCH ×2 (08:30→20:23)
[2017-01-18] MEDS: SODIUM CHLORIDE 0.9% FLUSH 5 ML FLUSH IVF SCH ×2 (08:31→20:22)
[2017-01-18] MEDS: ceFAZolin 2 GM PREMIX 50 ML IV SCH (08:31)
[2017-01-18] MEDS: ENOXAPARIN SODIUM 40 MG/0.4 ML SYRINGE SQ SCH (08:32)
--- NOTE | 2017-01-18 08:49 | MP ---
cc: KAVEH CALDERON M.D. DATE OF SURGERY 01/17/2017 PROCEDURE 1. Colostomy takedown 2. Rigid proctoscopy PREOPERATIVE DIAGNOSIS Colostomy status post perforated diverticulitis. POSTOPERATIVE DIAGNOSIS Colostomy status post perforated diverticulitis with no further need for colostomy. ANESTHESIA General endotracheal SURGEON Kaveh Calderon MD CLAIM INSPECTOR Aba Craig MD ESTIMATED BLOOD LOSS 50 mL FLUIDS 2600 mL crystalloid COMPLICATIONS None DRAINS None SPECIMEN None PROCEDURE IN DETAIL The patient was taken to the operating room and placed on the operating table in the supine position. After an adequate level of general endotracheal anesthesia was achieved, the colostomy site was oversewn with a 2-0 Prolene suture and the abdomen then prepped and draped in the usual fashion. An Ioban dressing was placed over the skin. Time-out was taken confirming the correct patient site and procedure to be performed. A midline incision was made and carried down through the fascia. The peritoneal cavity was directly visualized. Omentum was taken down off of the anterior abdominal wall with electrocautery. A wound protector was inserted and further dissection was made freeing up the omentum from the pelvis. This allowed for mobilization of the omentum up into the abdominal cavity as well as the small bowel. When this was able to be mobilized upward, this was retracted out of the way. The wound protector was removed temporarily to allow for mobilization of the colostomy after the rectal stump was mobilized. This was mobilized off of the bladder wall and was noted to be laying in the pelvis. This was freed up laterally utilizing right angle clamps and electrocautery. When this had been accomplished, the colostomy was removed from its site in an elliptical fashion utilizing a knife and electrocautery. The colostomy was brought into the abdominal cavity and a TANNA stapler used to freshen up the edge and take off the colostomy. The patient then had removal of the staple line and EEA sizers were placed in the colon. A 25 then 29 sizer was easily placed and passed without difficulty. When this was accomplished, the sizers were utilized by Dr. Craig rectally. Please see his dictation for the rigid proctoscopy. When he had perform this, the colon appeared to be ready to accept a 29 EEA and this was opened. The patient had placement of the pursestring suture utilizing a purse damon on the distal colon. The anvil was then placed into the distal colon and the suture cinched down. Excess colon was trimmed away from the anvil sharply. Fatty tissue was then also trimmed to allow for good tissue to tissue anastomosis with the staple line. The EEA was then brought in from below and landed anteriorly on the rectal stump. The colon was brought down to the rectal stump in an untwisted fashion and the anvil attached to the spike. The EEA was then cinched down and the stapler fired. The stapler was easily removed and irrigation was placed into the pelvis. The undersigned occluded the distal descending colon and Dr. Craig then placed the proctoscope back into the anus and insufflated the rectum. Under pressure insufflation, no bubbles were noted. This was seen to be secure even with manipulation of the colon in the pelvis. When this was completed, all air was aspirated and the irrigation aspirated as well. Very small bleeding points were controlled with electrocautery on the bladder wall and the pelvic sidewall. When this was completed, the abdomen was irrigated and the small bowel allowed to drop back into the pelvis. The omentum was placed over the small bowel and at this point the colostomy site was closed in two layers with a running #1 Prolene on the inside an interrupted Prolene on the outside. The fascia was closed with a running #1 PDS looped suture. 30 mL of 0.25% Marcaine with epinephrine was injected into the colostomy site and the incision and in the fascia along the incision. Both incisions were closed with ele. A Salvador dressing was applied to the midline incision. A 4x4 was placed over the colostomy site. The patient was extubated and taken back to the recovery room in stable condition. Sponge, needle and instrument counts were reported be correct x3. The patient tolerated the procedure well. MD GÉNESIS Aguilera/FARZANA /7:04 PM /8:38 AM [employer]
--- NOTE | 2017-01-18 09:53 | HHI.PR ---
Subjective Subjective Notes dry heaves last night better this am, pain controlled Objective Vitals/I&O Vital Signs Date Time Temp Pulse Resp B/P (MAP) Pulse Ox O2 Delivery O2 Flow Rate FiO2 01/18/17 08:05 94 21 01/18/17 07:00 Room Air 01/18/17 06:00 70 01/18/17 06:00 18 01/18/17 03:00 98.9 129/72 (91) 01/17/17 15:55 2.00 Labs Laboratory Tests Test 01/17/17 22:40 01/18/17 03:48 Nasal Screen MRSA (PCR) MRSA NOT DETECTED White Blood Count 13.5 Red Blood Count 3.57 Hemoglobin 10.7 Hematocrit 32.4 Mean Corpuscular Volume 90.7 Mean Corpuscular Hemoglobin 30.0 Mean Corpuscular Hemoglobin Concent 33.1 Red Cell Distribution Width 14.9 Platelet Count 257 Mean Platelet Volume 9.1 Neutrophils (%) (Auto) 83.1 Lymphocytes (%) (Auto) 11.1 Monocytes (%) (Auto) 5.7 Eosinophils (%) (Auto) 0.0 Basophils (%) (Auto) 0.1 Neutrophils # (Auto) 11.2 Lymphocytes # (Auto) 1.5 Monocytes # (Auto) 0.8 Eosinophils # (Auto) 0.0 Basophils # (Auto) 0.0 CBC Comment DIFF FINAL Differential Comment Blood Urea Nitrogen 6 Creatinine 0.48 Random Glucose 128 Calcium Level 8.7 Sodium Level 136 Potassium Level 3.6 Chloride Level 101 Carbon Dioxide Level 28.0 Anion Gap 7 Estimat Glomerular Filtration Rate 167 Abdomen: Other (soft, david, scant dry blood) A/P Assessment and Plan POD 1 Clostomy reversal PLAN david reinforced, colostomy site dressing changed pain control oob transfer to [facility] Denny Fuentes MD Jan 18, 2017 09:53
[2017-01-18] MEDS: ONDANSETRON HCL 4 MG/2 ML VIAL IV PUSH PRN (12:15)
[2017-01-18] MEDS: HYDROmorphone HCL PF 1 MG/ML VIAL IV PUSH PRN (23:28)
[2017-01-19] VITALS: BP 148/74; PULSE 96; RESP 20; TEMP 100.7; O2SAT 94
[2017-01-19] MEDS: oxyCODONE/ACETAMINOPHEN 7.5 MG/325 MG TAB PO PRN ×2 (05:36→17:25)
[2017-01-19] MEDS ORDERED: METHYLERGONOVINE MALEATE 0.2 MG/ML VIAL ONE (06:41)
[2017-01-19 08:00] VITALS: BP 142/78; PULSE 98; RESP 18; TEMP 98.8; O2SAT 92
[2017-01-19] MEDS: D5-NS + KCL 20 MEQ INJ 1,000 ML IV SCH (08:33)
[2017-01-19] MEDS: ALVIMOPAN 12 MG CAPSULE - Post-op dosing PO SCH ×2 (08:33→21:02)
[2017-01-19] MEDS: ENOXAPARIN SODIUM 40 MG/0.4 ML SYRINGE SQ SCH (08:34)
[2017-01-19] MEDS: SODIUM CHLORIDE 0.9% FLUSH 5 ML FLUSH IVF SCH ×2 (08:34→21:00)
--- NOTE | 2017-01-19 08:59 | HHI.PR ---
cc: Kaveh Calderon MD Subjective Subjective Notes Resting in bed; nausea/vomiting Tolerating fulls Family visiting later today Objective Vitals/I&O Vital Signs Date Time Temp Pulse Resp B/P (MAP) Pulse Ox O2 Delivery O2 Flow Rate FiO2 01/19/17 00:00 100.7 96 20 148/74 (98) 94 01/18/17 08:05 21 01/18/17 07:00 Room Air 01/17/17 15:55 2.00 Cardiovascular: Regular Lungs: Clear Abdomen: Other (midline incision with LUCIANA in place---good seal with minimal drainage on dressing; prior colonstomy site c/d/i with ele ) Extremities: No edema A/P Assessment and Plan 46 year old female POD2 colostomy takedown -Continue full liquids; advance once bowel function returns -Montez out this AM; + void -Lovenox -Percocet/Dilaudid for pain control -DC IVF -OOB and mobilize Attending Note - Dr. Kvng CHOWDHURY dressing intact Abdomen benign. The exam, history, and the medical decision-making described in the above note were completed with the assistance of the mid-level provider. I reviewed and agree with the findings presented. I attest that I had a [id number] encounter with the patient on the same day, and personally performed and documented my assessment and findings in the medical record. Elena Cruz Jan 19, 2017 08:59 Kaveh Calderon MD Jan 21, 2017 16:38
--- NOTE | 2017-01-19 10:35 | MP ---
cc: NICK SINGH DATE OF SURGERY 01/17/2017 PREOPERATIVE DIAGNOSIS Colostomy status post perforated diverticulitis. POSTOPERATIVE DIAGNOSIS Colostomy status post perforated diverticulitis. PROCEDURE PERFORMED Rigid sigmoidoscopy SURGEON Nick Singh MD ANESTHESIA General endotracheal COMPLICATIONS None INDICATIONS FOR THE PROCEDURE Mr. Ballard is a very pleasant 46-year-old patient of Dr. Kaveh Calderon who is currently undergoing a colostomy takedown. Dr. Calderon asked me to perform rigid sigmoidoscopy to evaluate the rectal stump and confirm the anastomosis. The risks and benefits were reviewed with the patient by Dr. Calderon, she gave consent. DETAILS The patient was in the operating room with Dr. Calderon undergoing colostomy takedown. She was in the lithotomy position. The anus was inspected and there were no gross abnormalities. Digital rectal exam was performed and there no palpable masses or obvious abnormalities. Rigid sigmoidoscope was then inserted. The patient was noted have several mucus balls which were removed. The scope was advanced about 15 cm and the staple line was identified where it had been stapled off from her previous procedure. Dr. Calderon confirm this intra-abdominally. There were no gross abnormalities. No masses or bleeding. The rigid sigmoidoscope was then withdrawn. Dr. Calderon then performed a EEA anastomosis. Once the anastomosis was completed, the sigmoidoscope was reintroduced. The rectum was insufflated. There is no significant bleeding noted. The rectum was then filled with air and Dr. Calderon confirmed there were no leaks from the anastomosis. The sigmoidoscope was then opened and the air was allowed to escape. The patient tolerated suture without any known complication. The patient was left in the care Dr. Kaveh Calderon. Please see his operative note for the details regarding the colostomy takedown. MD ISHA Gaxiola/FARZANA /9:10 AM /10:23 AM
[2017-01-19 12:00] VITALS: BP 131/80; PULSE 92; RESP 16; TEMP 97.8; O2SAT 92
[2017-01-19 16:00] VITALS: BP 155/84; PULSE 98; RESP 18; TEMP 100.6; O2SAT 94
[2017-01-19 20:00] VITALS: BP 133/78; PULSE 97; RESP 20; TEMP 99.1; O2SAT 93
[2017-01-20 01:21] VITALS: BP 130/88; PULSE 90; RESP 20; TEMP 99.5; O2SAT 96
[2017-01-20 08:00] VITALS: BP 143/78; PULSE 95; RESP 17; TEMP 99.4; O2SAT 96
[2017-01-20] MEDS: SODIUM CHLORIDE 0.9% FLUSH 5 ML FLUSH IVF SCH ×2 (09:00→19:32)
[2017-01-20] MEDS: ALVIMOPAN 12 MG CAPSULE - Post-op dosing PO SCH ×2 (09:00→19:32)
[2017-01-20] MEDS: ENOXAPARIN SODIUM 40 MG/0.4 ML SYRINGE SQ SCH (10:00)
[2017-01-20] MEDS: oxyCODONE/ACETAMINOPHEN 7.5 MG/325 MG TAB PO PRN ×2 (11:46→19:32)
[2017-01-20 12:00] VITALS: BP 144/84; PULSE 94; RESP 18; TEMP 99.3; O2SAT 96
--- NOTE | 2017-01-20 14:21 | HHI.PR ---
Subjective Subjective Notes tolerating clears, +BM Objective Vitals/I&O Vital Signs Date Time Temp Pulse Resp B/P (MAP) Pulse Ox O2 Delivery O2 Flow Rate FiO2 01/20/17 12:00 99.3 94 18 144/84 (104) 96 01/18/17 08:05 21 01/18/17 07:00 Room Air 01/17/17 15:55 2.00 Abdomen: Non-distended, Post-op tenderness Narrative Exam incisions c/d/i A/P Assessment and Plan 46yo female POD#3 colostomy reversal, doing well. bowel function returning, advance diet pain controlled Duane Cuevas MD Jan 20, 2017 14:21
[2017-01-20 16:00] VITALS: BP 137/86; PULSE 99; RESP 18; TEMP 98.7; O2SAT 99
[2017-01-20 20:01] VITALS: BP 143/78; PULSE 95; RESP 20; TEMP 98.8; O2SAT 98
[2017-01-21 00:16] VITALS: BP 110/70; PULSE 82; RESP 20; TEMP 96.6; O2SAT 96
[2017-01-21 08:00] VITALS: BP 135/77; PULSE 93; RESP 16; TEMP 99.3; O2SAT 96
[2017-01-21] MEDS: ALVIMOPAN 12 MG CAPSULE - Post-op dosing PO SCH ×2 (08:31→20:21)
[2017-01-21] MEDS: oxyCODONE/ACETAMINOPHEN 7.5 MG/325 MG TAB PO PRN ×3 (08:33→20:25)
--- NOTE | 2017-01-21 09:40 | HHI.PR ---
Subjective Subjective Notes Feels well, passing flatus, had a small BM. No solid diet yet; ready to eat. Objective Vitals/I&O Vital Signs Date Time Temp Pulse Resp B/P (MAP) Pulse Ox O2 Delivery O2 Flow Rate FiO2 01/21/17 08:00 99.3 93 16 135/77 (96) 96 01/18/17 08:05 21 01/18/17 07:00 Room Air 01/17/17 15:55 2.00 Lungs: Clear Abdomen: Non-distended, Post-op tenderness Narrative Exam Wound dressing removed; incision clean and dry with small blister upper portion of incision near umbilicus Colostomy incision clean with minimal drainage and no erythema A/P Problem List: (1) Chronic anemia Status: Chronic (2) Cystitis ICD Codes: N30.90 - Cystitis, unspecified without hematuria Status: Acute (3) Quadriparesis ICD Codes: G82.50 - Quadriplegia, unspecified Status: Acute (4) Osteoarthritis ICD Codes: M19.90 - Unspecified osteoarthritis, unspecified site Status: Acute (5) Impaired mobility and activities of daily living ICD Codes: Z74.09 - Other reduced mobility Status: Acute (6) Onychomycosis ICD Codes: B35.1 - Onychomycosis Status: Acute (7) Menorrhagia ICD Codes: N92.0 - Menorrhagia Status: Acute (8) Osteoarthritis of both knees ICD Codes: M17.0 - Bilateral primary osteoarthritis of knee Status: Chronic (9) Obesity ICD Codes: E66.9 - Obesity Status: Acute (10) Status post bilateral knee replacements ICD Codes: Z96.653 - Presence of artificial knee joint, bilateral Status: Acute Assessment and Plan POD #4 Colostomy takedown/rigid proctoscopy Doing quite well Plan: Continue ambulation Advance diet Discharge home tomorrow F/U my office one week Script in chart for percocKaveh Reyes MD Jan 21, 2017 09:40
[2017-01-21] MEDS ORDERED: PERC7.5T13 PO (09:42)
--- NOTE | 2017-01-21 09:45 | HHI.DS ---
Discharge Summary Admission Date Jan 17, 2017 at 05:21 Discharge Date: Jan 22, 2017 Admitting Diagnosis S/P colostomy for perforated diverticulitis (1) Chronic anemia Status: Chronic (2) Cystitis ICD Codes: N30.90 - Cystitis, unspecified without hematuria Status: Acute (3) Quadriparesis ICD Codes: G82.50 - Quadriplegia, unspecified Status: Acute (4) Osteoarthritis ICD Codes: M19.90 - Unspecified osteoarthritis, unspecified site Status: Acute (5) Impaired mobility and activities of daily living ICD Codes: Z74.09 - Other reduced mobility Status: Acute (6) Onychomycosis ICD Codes: B35.1 - Onychomycosis Status: Acute (7) Menorrhagia ICD Codes: N92.0 - Menorrhagia Status: Acute (8) Osteoarthritis of both knees ICD Codes: M17.0 - Bilateral primary osteoarthritis of knee Status: Chronic (9) Obesity ICD Codes: E66.9 - Obesity Status: Acute (10) Status post bilateral knee replacements ICD Codes: Z96.653 - Presence of artificial knee joint, bilateral Status: Acute Brief History Patient admitted for colostomy takedown 01/17 CBC/BMP: 01/18/17 0348 01/18/17 0348 PE at Discharge Wound dressing removed; incision clean and dry with small blister upper portion of incision near umbilicus Colostomy incision clean with minimal drainage and no erythema Hospital Course Patient underwent above named procedure 01/17/17. She was in [facility] overnight and transferred to floor on POD #1; alfonso removed on POD #1 Pain controlled with [employer] morphine and converted to PO percocet. Patient had a small BM on POD #3 and was passing flatus LUCIANA dressing removed on POD #4 and diet advanced to heart healthy. Pt Condition on Discharge: Good Discharge Disposition: Discharge Home Discharge Instructions DIET: Follow Instructions for: Heart Healthy Diet Activities you can perform: Shower Only-No Bath Activities to Avoid: Strenuous Activity Kaveh Calderon MD Jan 21, 2017 09:45
[2017-01-21] MEDS: ENOXAPARIN SODIUM 40 MG/0.4 ML SYRINGE SQ SCH (11:03)
[2017-01-21 12:00] VITALS: BP 143/84; PULSE 93; RESP 17; TEMP 97.9; O2SAT 96
[2017-01-21 16:00] VITALS: BP 131/78; PULSE 91; RESP 18; TEMP 97.4; O2SAT 96
[2017-01-21] MEDS: SODIUM CHLORIDE 0.9% FLUSH 5 ML FLUSH IVF SCH (20:25)
[2017-01-21 20:47] VITALS: BP 132/80; PULSE 82; RESP 18; TEMP 98.5; O2SAT 99
[2017-01-22 00:16] VITALS: BP 124/61; PULSE 86; RESP 18; TEMP 98; O2SAT 98
[2017-01-22 08:00] VITALS: BP 131/79; PULSE 94; RESP 17; TEMP 97.1; O2SAT 95
[2017-01-22] MEDS: ENOXAPARIN SODIUM 40 MG/0.4 ML SYRINGE SQ SCH (08:24)
[2017-01-22] MEDS: ALVIMOPAN 12 MG CAPSULE - Post-op dosing PO SCH (08:24)
[2017-01-22] MEDS: SODIUM CHLORIDE 0.9% FLUSH 5 ML FLUSH IVF SCH (08:25)
[2017-01-22] MEDS: oxyCODONE/ACETAMINOPHEN 7.5 MG/325 MG TAB PO PRN (08:47)
[2017-01-22 09:45] LABS: BACTERIA, URINE MANY /hpf; BLOOD, URINE NEG (NEG); GLUCOSE,URINE NEG (NEG); KETONE, URINE 150 mg/dL (NEG); MUCUS URINE MOD /lpf (OCC); NITRITE,URINE POS (NEG); PH, URINE 8.5 (5.0-8.5); SQUAMOUS EPITHELIAL CELL URINE 3 /hpf (0-5); URINE COLOR YELLOW (YELLW/STRAW)
[2017-01-22 09:47] LABS: COMMENT (UR) CULTURE INDICATED; CULTURE IF INDICATED CULTURE INDICATED
[2017-01-22 11:51] VITALS: BP 136/77; PULSE 93; RESP 18; TEMP 97.3; O2SAT 95
[2017-01-22] MEDS ORDERED: SULFAMETHOXAZOLE-TRIMETHOPRIM DS 800-160 MG TAB PO SCH (13:00)
[2017-01-22] MEDS ORDERED: LEVOFLOXACIN 750 MG TAB PO SCH (13:00)
[2017-01-22] MEDS ORDERED: SULF1TAB23 PO (14:27)
== END 2017-01-22 15:42 | disposition home or self-care (01) | DRG 331 ==
LOC: HSDI 05:21 → N03B 13:06 → N07B 01-18 16:00
PROVIDERS: ADMIT Surgery Trauma Surgery; ATTEND Surgery Trauma Surgery
PROC: 0DJD8ZZ Inspection of Lower Intestinal Tract, Via Natural or Artificial Opening Endoscopic (ICD-10-PCS; 2017-01-17)
PROC: 0DQM0ZZ Repair Descending Colon, Open Approach (ICD-10-PCS; principal; 2017-01-17 07:30)
DX: Z43.3 Encounter for attention to colostomy (principal); E66.9 Obesity, unspecified; D50.9 Iron deficiency anemia, unspecified; R11.2 Nausea with vomiting, unspecified; M06.9 Rheumatoid arthritis, unspecified; Z87.19 Personal history of other diseases of the digestive system; Z68.33 Body mass index [BMI] 33.0-33.9, adult
CPT/HCPCS: 36415; 76937; 80048; 81001; 84132; 85025; 85610; 85730; 86850; 86900; 86901; 87077; 87086; 87186; 87641; 93005; 94150; J0131; J0690; J1170; J1650; J2175; J2210; J2270; J2405; J3480; J7120